=== PATIENT | male | born 1965 | race African-American/Black ===

== ENCOUNTER 2016-07-29 12:27 | Inpatient (IN) | payer OTHER ==
[2016-07-29 14:07] VITALS: BMI 26.3
--- NOTE | 2016-07-29 16:38 | HP ---
CIWA Score - CIWA Score Nausea/Vomitin Muscle Tremors: 4-Moderate,w/Arms Extend Anxiety: 4-Mod. Anxious/Guarded Agitation: 1-Slight > Activity Paroxysmal Sweats: 2 Orientation: 3-Disoriented Date>2 days Tacttile Disturbances: 0-None Auditory Disturbances: 0-None Visual Disturbances: 0-None Headache: 2-Mild CIWA-Ar Total Score: 18 Admission ROS BHS - HPI Chief Complaint: withdrawal sx Allergies/Adverse Reactions: Allergies Allergy/AdvReac Type Severity Reaction Status Date / Time No Known Allergies Allergy Verified 05/07/16 19:33 History of Present Illness: 51 YEARS OLD MALE WITH LONG HISTORY OF ALCOHOL AND NICOTINE DEPENDENCE, HAS ASTHMA AND ANXIETY IS ADMITTED TO DETOX Exam Limitations: No Limitations - Ebola screening Have you traveled outside of the country in the last 21 days: No Have you had contact with anyone from an Ebola affected area: No Have you been sick,other than usual withdrawal symptoms: No Do you have a fever: No - Review of Systems Constitutional: Chills, Changes in sleep, Weight Stable EENT: reports: No Symptoms Reported Respiratory: reports: SOB with Exertion, Productive cough Cardiac: reports: No Symptoms Reported GI: reports: Nausea, Poor Fluid Intake, Vomiting, Indigestion, Abdominal cramping : reports: No Symptoms Reported Musculoskeletal: reports: Back Pain Integumentary: reports: No Symptoms Reported Neuro: reports: Seizure (ALCOHOL RELATED 05/2016), Tremors Endocrine: reports: No Symptoms Reported Hematology: reports: No Symptoms Reported Psychiatric: reports: Judgement Intact, Depressed Other Systems: Reviewed and Negative Patient History - Patient Medical History Hx Anemia: No Hx Asthma: Yes (Pt is on MDI) Hx Chronic Obstructive Pulmonary Disease (COPD): No Hx Cancer: No Hx Cardiac Disorders: No Hx Congestive Heart Failure: No Hx Hypertension: No Hx Hypercholesterolemia: No Hx Pacemaker: No HX Cerebrovascular Accident: No Hx Seizures: Yes (ALCOHOL REALTED 05/2016) Hx Dementia: No Hx Diabetes: No Hx Gastrointestinal Disorders: No Hx Liver Disease: Yes (fatty liver) Hx Genitourinary Disorders: No Hx Sexually Transmitted Disorders: No Hx Renal Disease (ESRD): No Hx Thyroid Disease: No Hx Human Immunodeficiency Virus (HIV): No Hx Hepatitis C: No Hx Depression: Yes Hx Suicide Attempt: No Hx Bipolar Disorder: No Hx Schizophrenia: No - Patient Surgical History Past Surgical History: No Hx Neurologic Surgery: No Hx Cataract Extraction: No Hx Cardiac Surgery: No Hx Lung Surgery: No Hx Breast Surgery: No Hx Breast Biopsy: No Hx Abdominal Surgery: No Hx Appendectomy: No Hx Cholecystectomy: No Hx Genitourinary Surgery: No Hx Orthopedic Surgery: No - PPD History Previous Implant?: Yes Implanted On Prior [facility] Admission?: Yes Date: 11/11/15 Results: 0 mm PPD to be Administered?: No - Smoking Cessation Smoking history: Current every day smoker Have you smoked in the past 12 months: Yes Aproximately how many cigarettes per day: 10 Cigars Per Day: 0 Hx Chewing Tobacco Use: No Initiated information on smoking cessation: Yes 'Breaking Loose' booklet given: 07/29/16 - Substance & Tx. History Hx Alcohol Use: Yes Hx Substance Use: No Substance Use Type: Alcohol Hx Substance Use Treatment: Yes - Substances Abused Alcohol Route: Oral Frequency: Daily Amount used: 1 pint [place] ice tea. Age of first use: 13 Date of Last Use: 07/29/16 Family Disease History - Family Disease History Family Disease History: Other: Father (alcohol), Mother (alcohol) Admission Physical Exam S - Vital Signs Vital Signs: Vital Signs - 24 hr 07/29/16 14:06 Temperature 97.6 F Pulse Rate 97 H Respiratory 16 Rate Blood Pressure 136/82 - Physical General Appearance: Yes: Nourished, Appropriately Dressed, Moderate Distress, Alcohol on Breath, Tremorous, Irritable, Sweating, Anxious HEENTM: Yes: Hearing grossly Normal, Normal ENT Inspection, Normocephalic, Normal Voice Respiratory: Yes: Chest Non-Tender, No Respiratory Distress, No Accessory Muscle Use, Wheezing, Expiration Neck: Yes: Supple, Trachea in good position Breast: Yes: Breasts Symetrical Cardiology: Yes: Regular Rhythm, Tachycardia Abdominal: Yes: Normal Bowel Sounds, Non Tender, Soft Genitourinary: Yes: Within Normal Limits Back: Yes: Normal Inspection Musculoskeletal: Yes: full range of Motion, Gait Steady, Back pain Extremities: Yes: Normal Inspection, Normal Range of Motion, Non-Tender, Tremors Neurological: Yes: Alert, Motor Strength 5/5, Normal Response, Depressed Affect Integumentary: Yes: Warm, Moist Lymphatic: Yes: Within Normal Limits - Diagnostic (1) Alcohol dependence with uncomplicated withdrawal Current Visit: Yes Status: Acute (2) Nicotine dependence Current Visit: Yes Status: Acute Qualifiers: Nicotine product type: cigarettes Substance use status: in withdrawal Qualified Code(s): F17.213 - Nicotine dependence, cigarettes, with withdrawal (3) Asthma Current Visit: Yes Status: Acute Qualifiers: Asthma severity: mild intermittent Asthma complication type: with status asthmaticus Qualified Code(s): J45.22 - Mild intermittent asthma with status asthmaticus (4) Fatty liver, alcoholic Current Visit: Yes Status: Chronic (5) Syphilis Current Visit: Yes Status: Resolved Comment: treated 30 years ago (6) Depression (emotion) Current Visit: Yes Status: Suspected Qualifiers: Depression Type: dysthymia Qualified Code(s): F34.1 - Dysthymic disorder (7) Vomiting Current Visit: Yes Status: Acute Qualifiers: Vomiting type: unspecified Vomiting Intractability: unspecified Nausea presence: with nausea Qualified Code(s): R11.2 - Nausea with vomiting, unspecified Comment: ALCOHOL WITHDRAWAL RELATED Cleared for Admission [facility] - Detox or Rehab [facility] Level of Care: Medically Managed Detox Regimen/Protocol: Librium [facility] Breath Alcohol Content Breath Alcohol Content: 0.196 Urine Drug Screen - Results Drug Screen Negative: Yes
[2016-07-29] MEDS ORDERED: LOPERAMIDE HCL 2 MG CAPSULE PO PRN (16:40)
[2016-07-29] MEDS ORDERED: MAGNESIUM CITRATE 300 ML BOTTLE PO PRN (16:40)
[2016-07-29] MEDS ORDERED: P-EPHED 60MG/TRIPROLIDI 2.5MG TABLET PO PRN (16:40)
[2016-07-29] MEDS ORDERED: MENTHOL/PHENOL 1 EACH UD MM PRN (16:40)
[2016-07-29] MEDS ORDERED: ACETAMINOPHEN 325 MG TABLET (FP) PO PRN (16:40)
[2016-07-29] MEDS ORDERED: chlordiazePOXIDE HCL 25 MG CAPSULE PO PRN (16:40)
[2016-07-29] MEDS ORDERED: diphenhydrAMINE HCL 50 MG CAPSULE PO PRN (16:40)
[2016-07-29] MEDS ORDERED: MAGNESIUM HYDROX 2400MG/30ML ORAL SUSPENSION 30 ML CUP PO PRN (16:40)
[2016-07-29] MEDS ORDERED: MAG HYDROX/AL HYDROX/SIMETH 30 ML UNIT-DOSE CUP PO PRN (16:40)
[2016-07-29] MEDS ORDERED: guaiFENesin/D-METHORPHAN HB 10 ML UNIT-DOSE CUPS PO PRN (16:40)
[2016-07-29] MEDS ORDERED: NICOTINE POLACRILEX 2 MG GUM BC PRN (16:40)
[2016-07-29] MEDS ORDERED: hydrOXYzine PAMOATE 50 MG CAPSULE (FP) PO PRN (16:40)
[2016-07-29] MEDS ORDERED: CYCLOBENZAPRINE HCL 10 MG TABLET (FP) PO PRN (16:42)
[2016-07-29] MEDS ORDERED: ALBUTEROL SO4 2.5/IPRATROPIUM 0.5 INH SOL 3 ML VIAL.NEB. NEB PRN (16:43)
[2016-07-29] MEDS ORDERED: ALBUTEROL SO4 6.7 GM HFA INHALER IH PRN (16:43)
[2016-07-29] MEDS ORDERED: chlordiazePOXIDE HCL 25 MG CAPSULE PO ONE (17:15)
[2016-07-29 19:54] LABS: URINE APPEARANCE CLEAR; URINE BILIRUBIN NEGATIVE (NEGATIVE); URINE BLOOD NEGATIVE (NEGATIVE); URINE COLOR YELLOW; URINE GLUCOSE (UA) NEGATIVE (NEGATIVE); URINE KETONE NEGATIVE (NEGATIVE); URINE LEUK ESTERASE NEGATIVE (NEGATIVE); URINE NITRITE NEGATIVE (NEGATIVE); URINE PROTEIN NEGATIVE (NEGATIVE); URINE UROBILINOGEN NEGATIVE E.U./dl (0.2-1.0)
[2016-07-29] MEDS: THIAMINE HCL 100 MG TABLET (FP) PO SCH (22:25)
[2016-07-29] MEDS: RANITIDINE HCL 150 MG TABLET (FP) PO SCH (22:25)
[2016-07-29] MEDS: chlordiazePOXIDE HCL 25 MG CAPSULE PO SCH (22:26)
[2016-07-30] MEDS: chlordiazePOXIDE HCL 25 MG CAPSULE PO SCH ×4 (05:40→22:07)
[2016-07-30 09:53] LABS: MCH 31.6 pg (25.7-33.7); MCHC 32.8 g/dl (32.0-35.9); MEAN CELL VOLUME 96.3 fl (80-96); MEAN PLT VOLUME 7.6 fl (7.5-11.1); PLATELET COUNT 181 K/MM3 (134-434); RDW 14.4 % (11.9-15.9); WHITE BLOOD COUNT 4.5 K/mm3 (4.0-10.0)
--- NOTE | 2016-07-30 09:54 | CONSULT ---
[facility] Psychiatric Consult - Data Date of interview: 07/30/16 Admission source: [facility] Identifying data: This is 51 years old male with no psychiatric hospitalization history inbtoxicated with Alcohol and Nicotine Substance Abuse History: - Smoking Cessation. Smoking history: Current every day smoker. Have you smoked in the past 12 months: Yes. Aproximately how many cigarettes per day: 10. Cigars Per Day: 0. Hx Chewing Tobacco Use: No. Initiated information on smoking cessation: Yes. 'Breaking Loose' booklet given : 07/29/16. - Substance & Tx. History. Hx Alcohol Use: Yes. Hx Substance Use : No. Substance Use Type: Alcohol. Hx Substance Use Treatment: Yes. - Substances Abused. Alcohol. Route: Oral. Frequency: Daily. Amount used: 1 pint [employer] ice tea. Age of first use: 13. Date of Last Use: 07/29/16 Medical History: Asthma, Fatty Liver, Syphilis history Psychiatric History: Patient reports history of Depression, reports no medications taking prior to admission Physical/Sexual Abuse/Trauma History: Denies Additional Comment: Observation. Detox Unit Care Protocol Mental Status Exam - Mental Status Exam Alert and Oriented to: Person Cognitive Function: Fair Patient Appearance: Unkempt Mood: Sad Affect: Flat Patient Behavior: Sedated Speech Pattern: Delayed Voice Loudness: Mildly Soft/Quiet Thought Process: Circumstantial Thought Disorder: Being Controlled Hallucinations: Denies Suicidal Ideation: Denies Homicidal Ideation: Denies Insight/Judgement: Fair Sleep: Difficulty falling asleep Appetite: Weight gain Muscle strength/Tone: Mild Hypotonicity Gait/Station: Shuffling Additional Comments: Observation. Detox Unit Care Protocol Psychiatric Findings - Problem List ([place] 1, 2,3) (1) Alcohol dependence with uncomplicated withdrawal Current Visit: Yes Status: Acute (2) Nicotine dependence Current Visit: Yes Status: Acute Qualifiers: Nicotine product type: cigarettes Substance use status: in withdrawal Qualified Code(s): F17.213 - Nicotine dependence, cigarettes, with withdrawal (3) Fatty liver, alcoholic Current Visit: Yes Status: Chronic (4) Drug-induced mood disorder Current Visit: No Status: Acute - Initial Treatment Plan Initial Treatment Plan: Observation. Detox Unit Care Protocol
[2016-07-30] MEDS: LIDOCAINE 5% TOPICAL PATCH TP SCH (10:09)
[2016-07-30] MEDS: PRENATAL VITAMINS W/ FOLIC ACID TABLET (FP) PO SCH (10:09)
[2016-07-30] MEDS: RANITIDINE HCL 150 MG TABLET (FP) PO SCH ×2 (10:09→22:08)
[2016-07-30] MEDS: NICOTINE 14 MG/24 HOURS TOPICAL PATCH TD SCH (10:09)
--- NOTE | 2016-07-30 10:25 | PN ---
[facility] CIWA - CIWA Score Nausea/Vomitin-No Nausea/No Vomiting Muscle Tremors: 4-Moderate,w/Arms Extend Anxiety: 4-Mod. Anxious/Guarded Agitation: 4-Moderately Restless Paroxysmal Sweats: 1-Minimal Palms Moist Orientation: 0-Oriented Tacttile Disturbances: 3-Moderate Itch/Numb/Burn Auditory Disturbances: 0-None Visual Disturbances: 0-None Headache: 0-None Present CIWA-Ar Total Score: 16 BHS Progress Note (SOAP) Subjective: ANXIETY,TREMORS,SWEATS. Objective: 07/30/16 10:24 Vital Signs Temperature 96.6 F L 07/30/16 09:54 Pulse Rate 103 H 07/30/16 09:54 Respiratory Rate 20 07/30/16 09:54 Blood Pressure 137/94 07/30/16 09:54 O2 Sat by Pulse Oximetry (%) Laboratory Last Values WBC 4.5 K/mm3 (4.0-10.0) D 07/30/16 07:20 RBC 4.34 M/mm3 (4.00-5.60) 07/30/16 07:20 Hgb 13.7 GM/dL (11.7-16.9) 07/30/16 07:20 Hct 41.8 % (35.4-49) 07/30/16 07:20 MCV 96.3 fl (80-96) H 07/30/16 07:20 MCHC 32.8 g/dl (32.0-35.9) 07/30/16 07:20 RDW 14.4 % (11.9-15.9) 07/30/16 07:20 Plt Count 181 K/MM3 (134-434) 07/30/16 07:20 MPV 7.6 fl (7.5-11.1) 07/30/16 07:20 Urine Color Yellow 07/29/16 19:00 Urine Appearance Clear 07/29/16 19:00 Urine pH 6.0 (5.0-8.0) D 07/29/16 19:00 Ur Specific [place] 1.023 (1.001-1.035) 07/29/16 19:00 Urine Protein Negative (NEGATIVE) 07/29/16 19:00 Urine Glucose (UA) Negative (NEGATIVE) 07/29/16 19:00 Urine Ketones Negative (NEGATIVE) 07/29/16 19:00 Urine Blood Negative (NEGATIVE) 07/29/16 19:00 Urine Nitrite Negative (NEGATIVE) 07/29/16 19:00 Urine Bilirubin Negative (NEGATIVE) 07/29/16 19:00 Urine Urobilinogen Negative E.U./dl (0.2-1.0) 07/29/16 19:00 Ur Leukocyte Esterase Negative (NEGATIVE) 07/29/16 19:00 Assessment: 07/30/16 10:25 WITHDRAWAL SX Plan: CONTINUE DETOX
[2016-07-30 10:29] LABS: ALK PHOS 87 U/L (45-117); ANION GAP 10 (8-16); BILIRUBIN,TOTAL 0.4 mg/dL (0.2-1.0); CALCIUM 8.1 mg/dL (8.5-10.1); CO2 27 mmol/L (21-32); CREATININE 1.1 mg/dL (0.7-1.3); GLUCOSE,RANDOM 183 mg/dL (74-106); SGOT/AST 362 U/L (15-37); SGPT/ALT 148 U/L (12-78); TOT PROT 6.9 g/dl (6.4-8.2)
--- NOTE | 2016-07-30 15:08 | EKG ---
Test Reason : Blood Pressure : / mmHG Vent. Rate : 089 BPM Atrial Rate : 089 BPM P-R Int : 134 ms QRS Dur : 082 ms QT Int : 350 ms P-R-T Axes : 059 069 047 degrees QTc Int : 425 ms NORMAL SINUS RHYTHM NORMAL ECG NO PREVIOUS ECGS AVAILABLE Confirmed by RADHA CHRISTENSEN MD ([id number]) on 07/30/2016 3:08:37 PM Referred By: Confirmed By:RADHA CHRISTENSEN MD
[2016-07-30] MEDS ORDERED: cloNIDine HCL 0.1 MG TABLET PO ONE (21:10)
[2016-07-30] MEDS: THIAMINE HCL 100 MG TABLET (FP) PO SCH (22:07)
[2016-07-31] MEDS: chlordiazePOXIDE HCL 25 MG CAPSULE PO SCH ×3 (05:32→17:19)
[2016-07-31] MEDS: PRENATAL VITAMINS W/ FOLIC ACID TABLET (FP) PO SCH (10:08)
[2016-07-31] MEDS: NICOTINE 14 MG/24 HOURS TOPICAL PATCH TD SCH (10:08)
[2016-07-31] MEDS: LIDOCAINE 5% TOPICAL PATCH TP SCH (10:10)
[2016-07-31] MEDS: RANITIDINE HCL 150 MG TABLET (FP) PO SCH ×2 (10:12→22:10)
--- NOTE | 2016-07-31 10:29 | PN ---
[facility] CIWA - CIWA Score Nausea/Vomitin-No Nausea/No Vomiting Muscle Tremors: 4-Moderate,w/Arms Extend Anxiety: 5 Agitation: 4-Moderately Restless Paroxysmal Sweats: 1-Minimal Palms Moist Orientation: 0-Oriented Tacttile Disturbances: 3-Moderate Itch/Numb/Burn Auditory Disturbances: 0-None Visual Disturbances: 0-None Headache: 0-None Present CIWA-Ar Total Score: 17 BHS Progress Note (SOAP) Subjective: ANXIETY,SWEATS,IRRITABILITY,FATIGUE. Objective: 07/31/16 10:28 Vital Signs Temperature 97.2 F L 07/31/16 06:37 Pulse Rate 53 L 07/31/16 06:37 Respiratory Rate 18 07/31/16 06:37 Blood Pressure 145/87 07/31/16 06:37 O2 Sat by Pulse Oximetry (%) Laboratory Last Values WBC 4.5 K/mm3 (4.0-10.0) D 07/30/16 07:20 RBC 4.34 M/mm3 (4.00-5.60) 07/30/16 07:20 Hgb 13.7 GM/dL (11.7-16.9) 07/30/16 07:20 Hct 41.8 % (35.4-49) 07/30/16 07:20 MCV 96.3 fl (80-96) H 07/30/16 07:20 MCHC 32.8 g/dl (32.0-35.9) 07/30/16 07:20 RDW 14.4 % (11.9-15.9) 07/30/16 07:20 Plt Count 181 K/MM3 (134-434) 07/30/16 07:20 MPV 7.6 fl (7.5-11.1) 07/30/16 07:20 Sodium 141 mmol/L (136-145) 07/30/16 07:20 Potassium 3.9 mmol/L (3.5-5.1) 07/30/16 07:20 Chloride 104 mmol/L (98-107) 07/30/16 07:20 Carbon Dioxide 27 mmol/L (21-32) 07/30/16 07:20 Anion Gap 10 (8-16) 07/30/16 07:20 BUN 12 mg/dL (7-18) 07/30/16 07:20 Creatinine 1.1 mg/dL (0.7-1.3) 07/30/16 07:20 Creat Clearance w eGFR > 60 (>60) 07/30/16 07:20 Random Glucose 183 mg/dL (74-106) H D 07/30/16 07:20 Calcium 8.1 mg/dL (8.5-10.1) L 07/30/16 07:20 Total Bilirubin 0.4 mg/dL (0.2-1.0) D 07/30/16 07:20 AST 362 U/L (15-37) H D 07/30/16 07:20 ALT 148 U/L (12-78) H D 07/30/16 07:20 Alkaline Phosphatase 87 U/L (45-117) 07/30/16 07:20 Total Protein 6.9 g/dl (6.4-8.2) 07/30/16 07:20 Albumin 3.0 g/dl (3.4-5.0) L 07/30/16 07:20 Urine Color Yellow 07/29/16 19:00 Urine Appearance Clear 07/29/16 19:00 Urine pH 6.0 (5.0-8.0) D 07/29/16 19:00 Ur Specific [place] 1.023 (1.001-1.035) 07/29/16 19:00 Urine Protein Negative (NEGATIVE) 07/29/16 19:00 Urine Glucose (UA) Negative (NEGATIVE) 07/29/16 19:00 Urine Ketones Negative (NEGATIVE) 07/29/16 19:00 Urine Blood Negative (NEGATIVE) 07/29/16 19:00 Urine Nitrite Negative (NEGATIVE) 07/29/16 19:00 Urine Bilirubin Negative (NEGATIVE) 07/29/16 19:00 Urine Urobilinogen Negative E.U./dl (0.2-1.0) 07/29/16 19:00 Ur Leukocyte Esterase Negative (NEGATIVE) 07/29/16 19:00 RPR Titer Nonreactive (NONREACTIVE) 07/30/16 07:20 Hepatitis C Antibody 0.1 s/co ratio (0.0-0.9) 07/30/16 07:20 Assessment: 07/31/16 10:29 WITHDRAWAL SX Plan: CONTINUE DETOX
[2016-07-31] MEDS: THIAMINE HCL 100 MG TABLET (FP) PO SCH (22:10)
[2016-07-31] MEDS: chlordiazePOXIDE 5 MG CAPSULE PO SCH (22:11)
[2016-08-01] MEDS: chlordiazePOXIDE 5 MG CAPSULE PO SCH ×3 (05:33→17:17)
[2016-08-01] MEDS: PRENATAL VITAMINS W/ FOLIC ACID TABLET (FP) PO SCH (10:04)
[2016-08-01] MEDS: LIDOCAINE 5% TOPICAL PATCH TP SCH (10:04)
[2016-08-01] MEDS: RANITIDINE HCL 150 MG TABLET (FP) PO SCH ×2 (10:04→22:07)
[2016-08-01] MEDS: NICOTINE 14 MG/24 HOURS TOPICAL PATCH TD SCH (10:04)
--- NOTE | 2016-08-01 12:26 | PN ---
BHS Progress Note (SOAP) Subjective: Restlessness, interrupted sleep, anxiety Objective: Vital Signs Temperature 97.2 F L 08/01/16 09:58 Pulse Rate 93 H 08/01/16 09:58 Respiratory Rate 20 08/01/16 09:58 Blood Pressure 135/95 08/01/16 09:58 O2 Sat by Pulse Oximetry (%) Laboratory Last Values WBC 4.5 K/mm3 (4.0-10.0) D 07/30/16 07:20 RBC 4.34 M/mm3 (4.00-5.60) 07/30/16 07:20 Hgb 13.7 GM/dL (11.7-16.9) 07/30/16 07:20 Hct 41.8 % (35.4-49) 07/30/16 07:20 MCV 96.3 fl (80-96) H 07/30/16 07:20 MCHC 32.8 g/dl (32.0-35.9) 07/30/16 07:20 RDW 14.4 % (11.9-15.9) 07/30/16 07:20 Plt Count 181 K/MM3 (134-434) 07/30/16 07:20 MPV 7.6 fl (7.5-11.1) 07/30/16 07:20 Sodium 141 mmol/L (136-145) 07/30/16 07:20 Potassium 3.9 mmol/L (3.5-5.1) 07/30/16 07:20 Chloride 104 mmol/L (98-107) 07/30/16 07:20 Carbon Dioxide 27 mmol/L (21-32) 07/30/16 07:20 Anion Gap 10 (8-16) 07/30/16 07:20 BUN 12 mg/dL (7-18) 07/30/16 07:20 Creatinine 1.1 mg/dL (0.7-1.3) 07/30/16 07:20 Creat Clearance w eGFR > 60 (>60) 07/30/16 07:20 Random Glucose 183 mg/dL (74-106) H D 07/30/16 07:20 Calcium 8.1 mg/dL (8.5-10.1) L 07/30/16 07:20 Total Bilirubin 0.4 mg/dL (0.2-1.0) D 07/30/16 07:20 AST 362 U/L (15-37) H D 07/30/16 07:20 ALT 148 U/L (12-78) H D 07/30/16 07:20 Alkaline Phosphatase 87 U/L (45-117) 07/30/16 07:20 Total Protein 6.9 g/dl (6.4-8.2) 07/30/16 07:20 Albumin 3.0 g/dl (3.4-5.0) L 07/30/16 07:20 Urine Color Yellow 07/29/16 19:00 Urine Appearance Clear 07/29/16 19:00 Urine pH 6.0 (5.0-8.0) D 07/29/16 19:00 Ur Specific [place] 1.023 (1.001-1.035) 07/29/16 19:00 Urine Protein Negative (NEGATIVE) 07/29/16 19:00 Urine Glucose (UA) Negative (NEGATIVE) 07/29/16 19:00 Urine Ketones Negative (NEGATIVE) 07/29/16 19:00 Urine Blood Negative (NEGATIVE) 07/29/16 19:00 Urine Nitrite Negative (NEGATIVE) 07/29/16 19:00 Urine Bilirubin Negative (NEGATIVE) 07/29/16 19:00 Urine Urobilinogen Negative E.U./dl (0.2-1.0) 07/29/16 19:00 Ur Leukocyte Esterase Negative (NEGATIVE) 07/29/16 19:00 RPR Titer Nonreactive (NONREACTIVE) 07/30/16 07:20 Hepatitis C Antibody 0.1 s/co ratio (0.0-0.9) 07/30/16 07:20 labs noted Assessment: withdrawal symptoms Plan: Continue Detox
[2016-08-01] MEDS: THIAMINE HCL 100 MG TABLET (FP) PO SCH (22:07)
[2016-08-01] MEDS: chlordiazePOXIDE HCL 10 MG CAPSULE PO SCH (22:07)
[2016-08-02] MEDS: chlordiazePOXIDE HCL 10 MG CAPSULE PO SCH ×2 (05:57→11:08)
[2016-08-02 07:07] VITALS: BP 127/77; PULSE 95; TEMP 96.3
[2016-08-02] MEDS: RANITIDINE HCL 150 MG TABLET (FP) PO SCH (11:08)
[2016-08-02] MEDS: PRENATAL VITAMINS W/ FOLIC ACID TABLET (FP) PO SCH (11:08)
[2016-08-02] MEDS: NICOTINE 14 MG/24 HOURS TOPICAL PATCH TD SCH (11:08)
[2016-08-02] MEDS: LIDOCAINE 5% TOPICAL PATCH TP SCH (11:08)
--- NOTE | 2016-08-02 12:58 | DS ---
[facility] Detox Discharge Summary Admission Date: 07/29/16 Discharge Date: 08/02/16 - History Present History: Alcohol Dependence Pertinent Past History: Alcohol related seizure disorder Fatty liver Asthma - Physical Exam Results Vital Signs: Vital Signs Temperature 96.3 F L 08/02/16 07:06 Pulse Rate 95 H 08/02/16 07:06 Respiratory Rate 18 08/02/16 07:06 Blood Pressure 127/77 08/02/16 07:06 O2 Sat by Pulse Oximetry (%) Pertinent Admission Physical Exam Findings: Withdrawal symptoms Laboratory Tests 07/29/16 07/30/16 07/30/16 19:00 07:20 07:20 WBC 4.5 D RBC 4.34 Hgb 13.7 Hct 41.8 MCV 96.3 H MCHC 32.8 RDW 14.4 Plt Count 181 MPV 7.6 Sodium Potassium Chloride Carbon Dioxide Anion Gap BUN Creatinine Creat Clearance w eGFR Random Glucose Calcium Total Bilirubin AST ALT Alkaline Phosphatase Total Protein Albumin Urine Color Yellow Urine Appearance Clear Urine pH 6.0 D Ur Specific [place] 1.023 Urine Protein Negative Urine Glucose (UA) Negative Urine Ketones Negative Urine Blood Negative Urine Nitrite Negative Urine Bilirubin Negative Urine Urobilinogen Negative Ur Leukocyte Esterase Negative RPR Titer Hepatitis C Antibody 0.1 07/30/16 07/30/16 07:20 07:20 WBC RBC Hgb Hct MCV MCHC RDW Plt Count MPV Sodium 141 Potassium 3.9 Chloride 104 Carbon Dioxide 27 Anion Gap 10 BUN 12 Creatinine 1.1 Creat Clearance w eGFR > 60 Random Glucose 183 H D Calcium 8.1 L Total Bilirubin 0.4 D AST 362 H D ALT 148 H D Alkaline Phosphatase 87 Total Protein 6.9 Albumin 3.0 L Urine Color Urine Appearance Urine pH Ur Specific [place] Urine Protein Urine Glucose (UA) Urine Ketones Urine Blood Urine Nitrite Urine Bilirubin Urine Urobilinogen Ur Leukocyte Esterase RPR Titer Nonreactive Hepatitis C Antibody Labs noted - Treatment Hospital Course: Detox Protocol Followed, Detoxed Safely, Responded well, Discharged Condition Good - Medication Discharge Medications: Ambulatory Orders Albuterol Sulfate Inhaler - [Ventolin Hfa Inhaler -] 2 inh PO Q4H PRN 11/09/15 - Diagnosis (1) Alcohol dependence with uncomplicated withdrawal Status: Acute (2) Asthma Status: Chronic Qualifiers: Asthma severity: mild intermittent Asthma complication type: with status asthmaticus Qualified Code(s): J45.22 - Mild intermittent asthma with status asthmaticus (3) Nicotine dependence Status: Chronic Qualifiers: Nicotine product type: cigarettes Substance use status: in withdrawal Qualified Code(s): F17.213 - Nicotine dependence, cigarettes, with withdrawal (4) Fatty liver, alcoholic Status: Chronic (5) Depression (emotion) Status: Chronic Qualifiers: Depression Type: dysthymia Qualified Code(s): F34.1 - Dysthymic disorder - AMA Did Patient Leave Against Medical Advice: No
== END 2016-08-02 09:00 | disposition home or self-care (01) | DRG 775 ==
LOC: YASAS 12:27 → Y3N 16:11
PROVIDERS: ADMIT Internal Medicine; ATTEND Internal Medicine
PROC: HZ2ZZZZ Detoxification Services for Substance Abuse Treatment (ICD-10-PCS; principal; 2016-08-02)
DX: F10.230 Alcohol dependence with withdrawal, uncomplicated (principal); F17.213 Nicotine dependence, cigarettes, with withdrawal; F34.1 Dysthymic disorder; F19.24 Other psychoactive substance dependence with psychoactive substance-induced mood disorder; J45.22 Mild intermittent asthma with status asthmaticus; K70.0 Alcoholic fatty liver; R11.2 Nausea with vomiting, unspecified; Z86.19 Personal history of other infectious and parasitic diseases
CPT/HCPCS: 36415; 80053; 81003; 85027; 86593; 93005; 93010

== ENCOUNTER 2020-04-29 13:22 | Inpatient (IN) | payer OTHER ==
[2020-04-29 15:07] VITALS: BMI 28.6
[2020-04-29] MEDS ORDERED: chlordiazePOXIDE HCL 25 MG CAPSULE PO PRN (15:36)
[2020-04-29] MEDS ORDERED: MENTHOL/PHENOL 1 EACH UD MM PRN (15:36)
[2020-04-29] MEDS ORDERED: ACETAMINOPHEN 325 MG TABLET (FP) PO PRN ×2 (15:36)
[2020-04-29] MEDS ORDERED: ONDANSETRON *ODT* 4 MG TABLET SL PRN (15:36)
[2020-04-29] MEDS ORDERED: METHOCARBAMOL 500 MG TABLET PO PRN (15:36)
[2020-04-29] MEDS ORDERED: NICOTINE POLACRILEX 2 MG GUM BUC PRN (15:36)
[2020-04-29] MEDS ORDERED: MAGNESIUM CITRATE 300 ML BOTTLE PO PRN (15:36)
[2020-04-29] MEDS ORDERED: MAGNESIUM HYDROX 2400MG/30ML ORAL SUSPENSION 30 ML CUP PO PRN (15:36)
[2020-04-29] MEDS ORDERED: IBUPROFEN 400 MG TABLET (FP) PO PRN (15:36)
[2020-04-29] MEDS ORDERED: BISMUTH SUBSALICYLATE 262 MG/15 ML BTL PO PRN (15:36)
[2020-04-29] MEDS ORDERED: ALBUTEROL SO4 HFA INHALER IH PRN (15:39)
[2020-04-29] MEDS: hydrOXYzine PAMOATE 25 MG CAPSULE (FP) PO SCH ×3 (16:50→22:06)
[2020-04-29] MEDS: PRENATAL VITAMINS W/ FOLIC ACID TABLET (FP) PO SCH (16:50)
[2020-04-29] MEDS: chlordiazePOXIDE HCL 25 MG CAPSULE PO SCH ×2 (16:50→22:06)
[2020-04-29] MEDS: NICOTINE 14 MG/24 HOURS TOPICAL PATCH TD SCH (16:55)
[2020-04-29] MEDS: THIAMINE HCL 100 MG TABLET (FP) PO SCH (22:06)
[2020-04-29] MEDS: MELATONIN 5 MG TABLETS PO SCH (22:06)
[2020-04-30] MEDS: hydrOXYzine PAMOATE 25 MG CAPSULE (FP) PO SCH ×2 (05:39→10:06)
[2020-04-30] MEDS: chlordiazePOXIDE HCL 25 MG CAPSULE PO SCH ×4 (05:39→22:15)
[2020-04-30] MEDS: PRENATAL VITAMINS W/ FOLIC ACID TABLET (FP) PO SCH (10:06)
[2020-04-30] MEDS: NICOTINE 14 MG/24 HOURS TOPICAL PATCH TD SCH (10:06)
[2020-04-30] MEDS: amLODIPine BESYLATE 10 MG TABLET (FP) PO SCH (10:06)
[2020-04-30 10:19] LABS: POTASSIUM 3.5 mmol/L (3.5-5.1)
[2020-04-30 10:20] LABS: HEMATOCRIT 40.6 % (35.4-49); HEMOGLOBIN 12.9 GM/dL (11.7-16.9); MCH 29.5 pg (25.7-33.7); MCHC 31.8 g/dl (32.0-35.9); MEAN CELL VOLUME 92.8 fl (80-96); MEAN PLT VOLUME 8.9 fl (7.5-11.1); PLATELET COUNT 95 K/MM3 (134-434); RBC 4.37 M/mm3 (4.00-5.60); RDW 16.3 % (11.9-15.9); WHITE BLOOD COUNT 5.5 K/mm3 (4.0-10.0)
[2020-04-30 10:23] LABS: ALBUMIN 4.1 g/dl (3.4-5.0); BLOOD UREA NITROGEN 9.4 mg/dL (7-18); CALCIUM 8.9 mg/dL (8.5-10.1)
[2020-04-30 10:28] LABS: BILIRUBIN,TOTAL 0.8 mg/dL (0.2-1)
[2020-04-30] MEDS: VITAMINS A AND D TOPICAL OINTMENT 60 GM TUBE TP SCH (17:51)
[2020-04-30] MEDS: MELATONIN 5 MG TABLETS PO SCH (22:15)
[2020-04-30] MEDS: THIAMINE HCL 100 MG TABLET (FP) PO SCH (22:15)
[2020-05-01] MEDS: VITAMINS A AND D TOPICAL OINTMENT 60 GM TUBE TP SCH ×5 (01:09→23:41)
[2020-05-01] MEDS: MAG HYDROX/AL HYDROX/SIMETH 30 ML UNIT-DOSE CUP PO PRN ×2 (01:21→23:47)
[2020-05-01] MEDS: chlordiazePOXIDE HCL 25 MG CAPSULE PO SCH ×4 (05:36→22:08)
[2020-05-01] MEDS: amLODIPine BESYLATE 10 MG TABLET (FP) PO SCH (10:08)
[2020-05-01] MEDS: PRENATAL VITAMINS W/ FOLIC ACID TABLET (FP) PO SCH (10:08)
[2020-05-01] MEDS: NICOTINE 14 MG/24 HOURS TOPICAL PATCH TD SCH (10:09)
[2020-05-01] MEDS: hydrOXYzine PAMOATE 25 MG CAPSULE (FP) PO PRN (17:25)
[2020-05-01] MEDS: MELATONIN 5 MG TABLETS PO SCH (22:08)
[2020-05-01] MEDS: THIAMINE HCL 100 MG TABLET (FP) PO SCH (22:08)
[2020-05-02] MEDS ORDERED: chlordiazePOXIDE HCL 10 MG CAPSULE PO PRN
[2020-05-02] MEDS: chlordiazePOXIDE HCL 10 MG CAPSULE PO SCH ×4 (06:13→22:10)
[2020-05-02] MEDS: VITAMINS A AND D TOPICAL OINTMENT 60 GM TUBE TP SCH ×3 (06:14→17:31)
[2020-05-02] MEDS: PRENATAL VITAMINS W/ FOLIC ACID TABLET (FP) PO SCH (10:26)
[2020-05-02] MEDS: NICOTINE 14 MG/24 HOURS TOPICAL PATCH TD SCH (10:27)
[2020-05-02] MEDS: amLODIPine BESYLATE 10 MG TABLET (FP) PO SCH (10:27)
[2020-05-02] MEDS: MELATONIN 5 MG TABLETS PO SCH (22:10)
[2020-05-02] MEDS: THIAMINE HCL 100 MG TABLET (FP) PO SCH (22:10)
[2020-05-03] MEDS: VITAMINS A AND D TOPICAL OINTMENT 60 GM TUBE TP SCH ×4 (00:55→22:03)
[2020-05-03] MEDS: chlordiazePOXIDE HCL 10 MG CAPSULE PO SCH ×2 (06:13→17:58)
[2020-05-03] MEDS: NICOTINE 14 MG/24 HOURS TOPICAL PATCH TD SCH (10:28)
[2020-05-03] MEDS: PRENATAL VITAMINS W/ FOLIC ACID TABLET (FP) PO SCH (10:29)
[2020-05-03] MEDS: amLODIPine BESYLATE 10 MG TABLET (FP) PO SCH (10:29)
[2020-05-03] MEDS: MELATONIN 5 MG TABLETS PO SCH (22:01)
[2020-05-03] MEDS: THIAMINE HCL 100 MG TABLET (FP) PO SCH (22:01)
[2020-05-03] MEDS: hydrOXYzine PAMOATE 25 MG CAPSULE (FP) PO PRN (22:01)
[2020-05-03] MEDS: MAG HYDROX/AL HYDROX/SIMETH 30 ML UNIT-DOSE CUP PO PRN (23:12)
[2020-05-04] MEDS: VITAMINS A AND D TOPICAL OINTMENT 60 GM TUBE TP SCH ×2 (00:36→05:46)
[2020-05-04] MEDS ORDERED: chlordiazePOXIDE HCL 10 MG CAPSULE PO ONE (05:00)
[2020-05-04 09:14] VITALS: BP 134/81; PULSE 96; TEMP 98
[2020-05-04] MEDS: amLODIPine BESYLATE 10 MG TABLET (FP) PO SCH (10:19)
[2020-05-04] MEDS: NICOTINE 14 MG/24 HOURS TOPICAL PATCH TD SCH (10:19)
[2020-05-04] MEDS: PRENATAL VITAMINS W/ FOLIC ACID TABLET (FP) PO SCH (10:19)
== END 2020-05-04 10:50 | disposition home or self-care (01) | DRG 775 ==
LOC: YASAS 13:22 → Y6N 15:28
PROVIDERS: ADMIT Allergy & Immunology; ATTEND Allergy & Immunology
PROC: HZ2ZZZZ Detoxification Services for Substance Abuse Treatment (ICD-10-PCS; principal; 2020-04-29)
DX: F10.230 Alcohol dependence with withdrawal, uncomplicated (principal); F10.24 Alcohol dependence with alcohol-induced mood disorder; F10.282 Alcohol dependence with alcohol-induced sleep disorder; F34.1 Dysthymic disorder; I10 Essential (primary) hypertension; J45.909 Unspecified asthma, uncomplicated; K21.9 Gastro-esophageal reflux disease without esophagitis; K70.0 Alcoholic fatty liver; Z86.69 Personal history of other diseases of the nervous system and sense organs; Z86.19 Personal history of other infectious and parasitic diseases
CPT/HCPCS: 36415; 80053; 82947; 85027; 86593; 86780; C9803; U0003

== ENCOUNTER 2020-06-21 08:44 | Inpatient (IN) | payer OTHER ==
[2020-06-21 09:49] VITALS: BMI 28.3
[2020-06-21] MEDS ORDERED: IBUPROFEN 400 MG TABLET (FP) PO PRN (11:39)
[2020-06-21] MEDS ORDERED: chlordiazePOXIDE HCL 25 MG CAPSULE PO PRN (11:39)
[2020-06-21] MEDS ORDERED: NICOTINE POLACRILEX 2 MG GUM BUC PRN (11:39)
[2020-06-21] MEDS ORDERED: METHOCARBAMOL 500 MG TABLET PO PRN (11:39)
[2020-06-21] MEDS ORDERED: MENTHOL/PHENOL 1 EACH UD MM PRN (11:39)
[2020-06-21] MEDS ORDERED: MAGNESIUM HYDROX 2400MG/30ML ORAL SUSPENSION 30 ML CUP PO PRN (11:39)
[2020-06-21] MEDS ORDERED: ACETAMINOPHEN 325 MG TABLET (FP) PO PRN ×2 (11:39)
[2020-06-21] MEDS ORDERED: BISMUTH SUBSALICYLATE 262 MG/15 ML BTL PO PRN (11:39)
[2020-06-21] MEDS ORDERED: MAG HYDROX/AL HYDROX/SIMETH 30 ML UNIT-DOSE CUP PO PRN (11:39)
[2020-06-21] MEDS ORDERED: ONDANSETRON *ODT* 4 MG TABLET SL PRN (11:39)
[2020-06-21] MEDS ORDERED: MAGNESIUM CITRATE 300 ML BOTTLE PO PRN (11:39)
[2020-06-21] MEDS ORDERED: ALBUTEROL SO4 HFA INHALER IH PRN (11:41)
[2020-06-21] MEDS: chlordiazePOXIDE HCL 25 MG CAPSULE PO SCH ×3 (12:53→22:06)
[2020-06-21] MEDS: PRENATAL VITAMINS W/ FOLIC ACID TABLET (FP) PO SCH (12:53)
[2020-06-21] MEDS: NICOTINE 7 MG/24 HOURS TOPICAL PATCH TD SCH (12:54)
[2020-06-21] MEDS ORDERED: hydrOXYzine PAMOATE 25 MG CAPSULE (FP) PO SCH (14:00)
[2020-06-21] MEDS ORDERED: hydrOXYzine PAMOATE 25 MG CAPSULE (FP) PO PRN (14:19)
[2020-06-21 16:30] LABS: POTASSIUM 4.3 mmol/L (3.5-5.1)
[2020-06-21 16:32] LABS: HEMATOCRIT 42.3 % (35.4-49); HEMOGLOBIN 13.4 GM/dL (11.7-16.9); MCH 28.8 pg (25.7-33.7); MCHC 31.6 g/dl (32.0-35.9); MEAN CELL VOLUME 91.2 fl (80-96); MEAN PLT VOLUME 9.1 fl (7.5-11.1); RBC 4.64 M/mm3 (4.00-5.60)
[2020-06-21 16:34] LABS: ALBUMIN 4.1 g/dl (3.4-5.0); BLOOD UREA NITROGEN 7.4 mg/dL (7-18)
[2020-06-21 16:36] LABS: CREATININE 0.9 mg/dL (0.55-1.3)
[2020-06-21 16:37] LABS: BILIRUBIN,TOTAL 1.2 mg/dL (0.2-1); TOT PROT 8.2 g/dl (6.4-8.2)
[2020-06-21] MEDS: MELATONIN 5 MG TABLETS PO SCH (22:05)
[2020-06-21] MEDS: THIAMINE HCL 100 MG TABLET (FP) PO SCH (22:05)
[2020-06-22] MEDS: chlordiazePOXIDE HCL 25 MG CAPSULE PO SCH ×2 (06:13→10:22)
[2020-06-22] MEDS: amLODIPine BESYLATE 10 MG TABLET (FP) PO SCH (10:22)
[2020-06-22] MEDS: PRENATAL VITAMINS W/ FOLIC ACID TABLET (FP) PO SCH (10:22)
[2020-06-22] MEDS: NICOTINE 7 MG/24 HOURS TOPICAL PATCH TD SCH (10:23)
[2020-06-22] MEDS ORDERED: LORazepam 1 MG TABLET PO PRN (12:10)
[2020-06-22] MEDS ORDERED: LORazepam 2 MG TABLET PO PRN (17:00)
[2020-06-22] MEDS: MELATONIN 5 MG TABLETS PO SCH (22:23)
[2020-06-22] MEDS: THIAMINE HCL 100 MG TABLET (FP) PO SCH (22:24)
[2020-06-23] MEDS ORDERED: chlordiazePOXIDE HCL 25 MG CAPSULE PO SCH (05:00)
[2020-06-23] MEDS: LORazepam 1 MG TABLET PO SCH ×4 (06:05→22:16)
[2020-06-23] MEDS: PRENATAL VITAMINS W/ FOLIC ACID TABLET (FP) PO SCH (10:23)
[2020-06-23] MEDS: amLODIPine BESYLATE 10 MG TABLET (FP) PO SCH (10:23)
[2020-06-23] MEDS: NICOTINE 7 MG/24 HOURS TOPICAL PATCH TD SCH (10:23)
[2020-06-23] MEDS ORDERED: PENICILLIN G BENZATHINE 2,400,000 UNIT/4 ML PFS IM ONE (18:00)
[2020-06-23] MEDS: MELATONIN 5 MG TABLETS PO SCH (22:16)
[2020-06-23] MEDS: THIAMINE HCL 100 MG TABLET (FP) PO SCH (22:16)
[2020-06-24] MEDS ORDERED: chlordiazePOXIDE HCL 10 MG CAPSULE PO PRN
[2020-06-24] MEDS ORDERED: chlordiazePOXIDE HCL 10 MG CAPSULE PO SCH (05:00)
[2020-06-24] MEDS: LORazepam 0.5 MG TABLET PO SCH ×4 (05:27→22:34)
[2020-06-24] MEDS: amLODIPine BESYLATE 10 MG TABLET (FP) PO SCH (10:55)
[2020-06-24] MEDS: PRENATAL VITAMINS W/ FOLIC ACID TABLET (FP) PO SCH (10:55)
[2020-06-24] MEDS: NICOTINE 7 MG/24 HOURS TOPICAL PATCH TD SCH (10:56)
[2020-06-24 12:10] LABS: BILIRUBIN,TOTAL 0.4 mg/dL (0.2-1)
[2020-06-24 12:20] LABS: BASO % 0.4 % (0-2.0); EOS % 1.5 % (0-4.5); HEMATOCRIT 38.7 % (35.4-49); HEMOGLOBIN 12.7 GM/dL (11.7-16.9); LYMPH % 28.9 % (8-40); MCH 29.2 pg (25.7-33.7); MCHC 32.8 g/dl (32.0-35.9); MEAN PLT VOLUME 9.3 fl (7.5-11.1); MONO % 9.3 % (3.8-10.2); NEUT % 59.9 % (42.8-82.8); PLATELET COUNT 77 K/MM3 (134-434); RBC 4.35 M/mm3 (4.00-5.60); RDW 16.5 % (11.9-15.9); WHITE BLOOD COUNT 5.7 K/mm3 (4.0-10.0)
[2020-06-24] MEDS: THIAMINE HCL 100 MG TABLET (FP) PO SCH (22:33)
[2020-06-24] MEDS: MELATONIN 5 MG TABLETS PO SCH (22:33)
[2020-06-25] MEDS ORDERED: LORazepam 0.5 MG TABLET PO PRN
[2020-06-25] MEDS ORDERED: chlordiazePOXIDE HCL 10 MG CAPSULE PO SCH (05:00)
[2020-06-25] MEDS ORDERED: LORazepam 0.5 MG TABLET PO ONE (05:00)
[2020-06-25] MEDS: NICOTINE 7 MG/24 HOURS TOPICAL PATCH TD SCH (10:28)
[2020-06-25] MEDS: PRENATAL VITAMINS W/ FOLIC ACID TABLET (FP) PO SCH (10:28)
[2020-06-25] MEDS: amLODIPine BESYLATE 10 MG TABLET (FP) PO SCH (10:28)
[2020-06-25 13:23] VITALS: BP 132/87; PULSE 115; TEMP 98.2
[2020-06-26] MEDS ORDERED: chlordiazePOXIDE HCL 10 MG CAPSULE PO ONE (05:00)
[2020-06-30] MEDS ORDERED: PENICILLIN G BENZATHINE 2,400,000 UNIT/4 ML PFS IM ONE (18:00)
[2020-07-07] MEDS ORDERED: PENICILLIN G BENZATHINE 2,400,000 UNIT/4 ML PFS IM ONE (18:00)
== END 2020-06-25 13:45 | disposition other institution (70) | DRG 775 ==
LOC: YASAS 08:44 → Y3N 12:05
PROVIDERS: ADMIT Allergy & Immunology; ATTEND Allergy & Immunology
PROC: HZ2ZZZZ Detoxification Services for Substance Abuse Treatment (ICD-10-PCS; principal; 2020-06-21)
DX: F10.230 Alcohol dependence with withdrawal, uncomplicated (principal); F17.210 Nicotine dependence, cigarettes, uncomplicated; F10.282 Alcohol dependence with alcohol-induced sleep disorder; F10.24 Alcohol dependence with alcohol-induced mood disorder; F34.1 Dysthymic disorder; A53.0 Latent syphilis, unspecified as early or late; G47.00 Insomnia, unspecified; G40.909 Epilepsy, unspecified, not intractable, without status epilepticus; I10 Essential (primary) hypertension; J45.909 Unspecified asthma, uncomplicated; K21.9 Gastro-esophageal reflux disease without esophagitis; K76.0 Fatty (change of) liver, not elsewhere classified; M54.5 Low back pain; R94.5 Abnormal results of liver function studies; R00.0 Tachycardia, unspecified; Z91.018 Allergy to other foods; Z59.0 Homelessness; Z87.39 Personal history of other diseases of the musculoskeletal system and connective tissue
CPT/HCPCS: 36415; 80053; 82247; 84450; 84460; 85025; 85027; 86593; 86780; C9803; U0003

== ENCOUNTER 2020-06-25 13:59 | Inpatient (IN) | payer OTHER ==
[2020-06-25] MEDS ORDERED: MAGNESIUM HYDROX 2400MG/30ML ORAL SUSPENSION 30 ML CUP PO PRN (15:07)
[2020-06-25] MEDS ORDERED: MENTHOL/PHENOL 1 EACH UD MM PRN (15:07)
[2020-06-25] MEDS ORDERED: guaiFENesin 200 MG/10 ML 10 ML UNIT-DOSE CUPS PO PRN (15:07)
[2020-06-25] MEDS ORDERED: MAGNESIUM CITRATE 300 ML BOTTLE PO PRN (15:07)
[2020-06-25] MEDS ORDERED: NICOTINE POLACRILEX 2 MG GUM BUC PRN (15:07)
[2020-06-25] MEDS ORDERED: P-EPHED 60MG/TRIPROLIDI 2.5MG TABLET PO PRN (15:07)
[2020-06-25] MEDS ORDERED: LOPERAMIDE HCL 2 MG CAPSULE PO PRN (15:07)
[2020-06-25] MEDS ORDERED: ACETAMINOPHEN 325 MG TABLET (FP) PO PRN (15:07)
[2020-06-25] MEDS ORDERED: MAG HYDROX/AL HYDROX/SIMETH 30 ML UNIT-DOSE CUP PO PRN (15:07)
[2020-06-25] MEDS: MELATONIN 5 MG TABLETS PO SCH (21:18)
[2020-06-25] MEDS: THIAMINE HCL 100 MG TABLET (FP) PO SCH (21:18)
[2020-06-25] MEDS: hydrOXYzine PAMOATE 25 MG CAPSULE (FP) PO PRN (21:18)
[2020-06-26] MEDS: PRENATAL VITAMINS W/ FOLIC ACID TABLET (FP) PO SCH (10:18)
[2020-06-26] MEDS: NICOTINE 7 MG/24 HOURS TOPICAL PATCH TD SCH (10:18)
[2020-06-26] MEDS: MELATONIN 5 MG TABLETS PO SCH (21:31)
[2020-06-26] MEDS: THIAMINE HCL 100 MG TABLET (FP) PO SCH (21:31)
[2020-06-27] MEDS: PRENATAL VITAMINS W/ FOLIC ACID TABLET (FP) PO SCH (10:03)
[2020-06-27] MEDS: NICOTINE 7 MG/24 HOURS TOPICAL PATCH TD SCH (10:03)
[2020-06-27] MEDS: THIAMINE HCL 100 MG TABLET (FP) PO SCH (21:39)
[2020-06-27] MEDS: MELATONIN 5 MG TABLETS PO SCH (21:39)
[2020-06-28] MEDS: PRENATAL VITAMINS W/ FOLIC ACID TABLET (FP) PO SCH (09:12)
[2020-06-28] MEDS: NICOTINE 7 MG/24 HOURS TOPICAL PATCH TD SCH (09:13)
[2020-06-28] MEDS: MELATONIN 5 MG TABLETS PO SCH (21:24)
[2020-06-28] MEDS: THIAMINE HCL 100 MG TABLET (FP) PO SCH (21:24)
[2020-06-29] MEDS: PRENATAL VITAMINS W/ FOLIC ACID TABLET (FP) PO SCH (10:01)
[2020-06-29] MEDS: NICOTINE 7 MG/24 HOURS TOPICAL PATCH TD SCH (10:01)
[2020-06-29] MEDS: MELATONIN 5 MG TABLETS PO SCH (21:35)
[2020-06-29] MEDS: THIAMINE HCL 100 MG TABLET (FP) PO SCH (21:35)
[2020-06-29] MEDS: hydrOXYzine PAMOATE 25 MG CAPSULE (FP) PO PRN (21:35)
[2020-06-30] MEDS: PRENATAL VITAMINS W/ FOLIC ACID TABLET (FP) PO SCH (09:42)
[2020-06-30] MEDS: NICOTINE 7 MG/24 HOURS TOPICAL PATCH TD SCH (09:42)
[2020-06-30] MEDS: THIAMINE HCL 100 MG TABLET (FP) PO SCH (21:20)
[2020-06-30] MEDS: hydrOXYzine PAMOATE 25 MG CAPSULE (FP) PO PRN (21:20)
[2020-06-30] MEDS: MELATONIN 5 MG TABLETS PO SCH (21:20)
[2020-07-01] MEDS: PRENATAL VITAMINS W/ FOLIC ACID TABLET (FP) PO SCH (09:57)
[2020-07-01] MEDS: NICOTINE 7 MG/24 HOURS TOPICAL PATCH TD SCH (09:58)
[2020-07-01] MEDS: THIAMINE HCL 100 MG TABLET (FP) PO SCH (21:33)
[2020-07-01] MEDS: MELATONIN 5 MG TABLETS PO SCH (21:33)
[2020-07-01] MEDS: hydrOXYzine PAMOATE 25 MG CAPSULE (FP) PO PRN (21:33)
[2020-07-02] MEDS: NICOTINE 7 MG/24 HOURS TOPICAL PATCH TD SCH (09:55)
[2020-07-02] MEDS: PRENATAL VITAMINS W/ FOLIC ACID TABLET (FP) PO SCH (09:55)
[2020-07-02] MEDS: MELATONIN 5 MG TABLETS PO SCH (21:39)
[2020-07-02] MEDS: THIAMINE HCL 100 MG TABLET (FP) PO SCH (21:39)
[2020-07-03] MEDS: PRENATAL VITAMINS W/ FOLIC ACID TABLET (FP) PO SCH (09:51)
[2020-07-03] MEDS: NICOTINE 7 MG/24 HOURS TOPICAL PATCH TD SCH (09:51)
[2020-07-03] MEDS: THIAMINE HCL 100 MG TABLET (FP) PO SCH (21:40)
[2020-07-03] MEDS: hydrOXYzine PAMOATE 25 MG CAPSULE (FP) PO PRN (21:40)
[2020-07-03] MEDS: MELATONIN 5 MG TABLETS PO SCH (21:40)
[2020-07-04] MEDS: PRENATAL VITAMINS W/ FOLIC ACID TABLET (FP) PO SCH (10:03)
[2020-07-04] MEDS: NICOTINE 7 MG/24 HOURS TOPICAL PATCH TD SCH (10:03)
[2020-07-04] MEDS: MELATONIN 5 MG TABLETS PO SCH (21:24)
[2020-07-04] MEDS: THIAMINE HCL 100 MG TABLET (FP) PO SCH (21:24)
[2020-07-04] MEDS: hydrOXYzine PAMOATE 25 MG CAPSULE (FP) PO PRN (21:24)
[2020-07-05] MEDS: NICOTINE 7 MG/24 HOURS TOPICAL PATCH TD SCH (10:03)
[2020-07-05] MEDS: PRENATAL VITAMINS W/ FOLIC ACID TABLET (FP) PO SCH (10:03)
[2020-07-05] MEDS: MELATONIN 5 MG TABLETS PO SCH (21:32)
[2020-07-05] MEDS: hydrOXYzine PAMOATE 25 MG CAPSULE (FP) PO PRN (21:32)
[2020-07-05] MEDS: THIAMINE HCL 100 MG TABLET (FP) PO SCH (21:32)
[2020-07-06] MEDS: PRENATAL VITAMINS W/ FOLIC ACID TABLET (FP) PO SCH (09:56)
[2020-07-06] MEDS: NICOTINE 7 MG/24 HOURS TOPICAL PATCH TD SCH (09:57)
[2020-07-06] MEDS: THIAMINE HCL 100 MG TABLET (FP) PO SCH (21:38)
[2020-07-06] MEDS: MELATONIN 5 MG TABLETS PO SCH (21:38)
[2020-07-07] MEDS: NICOTINE 7 MG/24 HOURS TOPICAL PATCH TD SCH (10:05)
[2020-07-07] MEDS: PRENATAL VITAMINS W/ FOLIC ACID TABLET (FP) PO SCH (10:05)
[2020-07-07] MEDS: THIAMINE HCL 100 MG TABLET (FP) PO SCH (21:50)
[2020-07-07] MEDS: MELATONIN 5 MG TABLETS PO SCH (21:50)
[2020-07-08] MEDS: PRENATAL VITAMINS W/ FOLIC ACID TABLET (FP) PO SCH (10:10)
[2020-07-08] MEDS: NICOTINE 7 MG/24 HOURS TOPICAL PATCH TD SCH (10:10)
[2020-07-08] MEDS ORDERED: ALBUTEROL SO4 HFA INHALER IH PRN (11:08)
[2020-07-08] MEDS: amLODIPine BESYLATE 10 MG TABLET (FP) PO SCH (12:41)
[2020-07-08] MEDS: THIAMINE HCL 100 MG TABLET (FP) PO SCH (21:38)
[2020-07-08] MEDS: MELATONIN 5 MG TABLETS PO SCH (21:38)
[2020-07-09] MEDS: NICOTINE 7 MG/24 HOURS TOPICAL PATCH TD SCH (10:03)
[2020-07-09] MEDS: amLODIPine BESYLATE 10 MG TABLET (FP) PO SCH (10:03)
[2020-07-09] MEDS: PRENATAL VITAMINS W/ FOLIC ACID TABLET (FP) PO SCH (10:03)
[2020-07-09] MEDS: THIAMINE HCL 100 MG TABLET (FP) PO SCH (21:30)
[2020-07-09] MEDS: MELATONIN 5 MG TABLETS PO SCH (21:30)
[2020-07-09] MEDS: hydrOXYzine PAMOATE 25 MG CAPSULE (FP) PO PRN (21:30)
[2020-07-10] MEDS: amLODIPine BESYLATE 10 MG TABLET (FP) PO SCH (09:51)
[2020-07-10] MEDS: NICOTINE 7 MG/24 HOURS TOPICAL PATCH TD SCH (09:51)
[2020-07-10] MEDS: PRENATAL VITAMINS W/ FOLIC ACID TABLET (FP) PO SCH (09:51)
[2020-07-10] MEDS: THIAMINE HCL 100 MG TABLET (FP) PO SCH (21:46)
[2020-07-10] MEDS: MELATONIN 5 MG TABLETS PO SCH (21:46)
[2020-07-10] MEDS: hydrOXYzine PAMOATE 25 MG CAPSULE (FP) PO PRN (21:46)
[2020-07-11] MEDS: amLODIPine BESYLATE 10 MG TABLET (FP) PO SCH (10:04)
[2020-07-11] MEDS: NICOTINE 7 MG/24 HOURS TOPICAL PATCH TD SCH (10:04)
[2020-07-11] MEDS: PRENATAL VITAMINS W/ FOLIC ACID TABLET (FP) PO SCH (10:05)
[2020-07-11] MEDS: THIAMINE HCL 100 MG TABLET (FP) PO SCH (21:19)
[2020-07-11] MEDS: hydrOXYzine PAMOATE 25 MG CAPSULE (FP) PO PRN (21:19)
[2020-07-11] MEDS: MELATONIN 5 MG TABLETS PO SCH (21:19)
[2020-07-12] MEDS: NICOTINE 7 MG/24 HOURS TOPICAL PATCH TD SCH (10:22)
[2020-07-12] MEDS: PRENATAL VITAMINS W/ FOLIC ACID TABLET (FP) PO SCH (10:22)
[2020-07-12] MEDS: amLODIPine BESYLATE 10 MG TABLET (FP) PO SCH (10:27)
[2020-07-12] MEDS: MELATONIN 5 MG TABLETS PO SCH (21:33)
[2020-07-12] MEDS: THIAMINE HCL 100 MG TABLET (FP) PO SCH (21:33)
[2020-07-13] MEDS: amLODIPine BESYLATE 10 MG TABLET (FP) PO SCH (09:39)
[2020-07-13] MEDS: PRENATAL VITAMINS W/ FOLIC ACID TABLET (FP) PO SCH (09:39)
[2020-07-13] MEDS: NICOTINE 7 MG/24 HOURS TOPICAL PATCH TD SCH (09:39)
[2020-07-13] MEDS: THIAMINE HCL 100 MG TABLET (FP) PO SCH (21:23)
[2020-07-13] MEDS: MELATONIN 5 MG TABLETS PO SCH (21:23)
[2020-07-13] MEDS: hydrOXYzine PAMOATE 25 MG CAPSULE (FP) PO PRN (21:23)
[2020-07-14] MEDS: amLODIPine BESYLATE 10 MG TABLET (FP) PO SCH (09:36)
[2020-07-14] MEDS: PRENATAL VITAMINS W/ FOLIC ACID TABLET (FP) PO SCH (09:36)
[2020-07-14] MEDS: NICOTINE 7 MG/24 HOURS TOPICAL PATCH TD SCH (09:36)
[2020-07-14] MEDS: IBUPROFEN 400 MG TABLET (FP) PO PRN ×2 (14:17→21:25)
[2020-07-14] MEDS: THIAMINE HCL 100 MG TABLET (FP) PO SCH (21:24)
[2020-07-14] MEDS: MELATONIN 5 MG TABLETS PO SCH (21:24)
[2020-07-15 07:09] VITALS: BP 106/79; PULSE 85; TEMP 97.5
[2020-07-15] MEDS: PRENATAL VITAMINS W/ FOLIC ACID TABLET (FP) PO SCH (09:28)
[2020-07-15] MEDS: amLODIPine BESYLATE 10 MG TABLET (FP) PO SCH (09:29)
== END 2020-07-15 09:33 | disposition home or self-care (01) | DRG 772 ==
LOC: YASAS 13:59 → Y5N 14:02
PROVIDERS: ADMIT Allergy & Immunology; ATTEND Allergy & Immunology
PROC: HZ42ZZZ Group Counseling for Substance Abuse Treatment, Cognitive-Behavioral (ICD-10-PCS; principal; 2020-06-25)
DX: F10.20 Alcohol dependence, uncomplicated (principal); F32.9 Major depressive disorder, single episode, unspecified; G40.909 Epilepsy, unspecified, not intractable, without status epilepticus; I10 Essential (primary) hypertension; J45.909 Unspecified asthma, uncomplicated; K21.9 Gastro-esophageal reflux disease without esophagitis; K70.0 Alcoholic fatty liver; M50.220 Other cervical disc displacement, mid-cervical region, unspecified level; Z86.69 Personal history of other diseases of the nervous system and sense organs; Z91.018 Allergy to other foods
CPT/HCPCS: C9803; U0003

== ENCOUNTER 2020-10-06 15:21 | Inpatient (IN) | payer OTHER ==
[2020-10-06 17:22] VITALS: BMI 31.1
[2020-10-06] MEDS ORDERED: ONDANSETRON *ODT* 4 MG TABLET SL PRN (19:34)
[2020-10-06] MEDS ORDERED: MENTHOL/PHENOL 1 EACH UD MM PRN (19:34)
[2020-10-06] MEDS ORDERED: MAGNESIUM CITRATE 300 ML BOTTLE PO PRN (19:34)
[2020-10-06] MEDS ORDERED: ACETAMINOPHEN 325 MG TABLET (FP) PO PRN ×2 (19:34)
[2020-10-06] MEDS ORDERED: METHOCARBAMOL 500 MG TABLET PO PRN (19:34)
[2020-10-06] MEDS ORDERED: BISMUTH SUBSALICYLATE 524 MG/30 ML UD PO PRN (19:34)
[2020-10-06] MEDS ORDERED: hydrOXYzine PAMOATE 25 MG CAPSULE (FP) PO PRN (19:34)
[2020-10-06] MEDS ORDERED: NICOTINE POLACRILEX 2 MG GUM BUC PRN (19:34)
[2020-10-06] MEDS ORDERED: MAGNESIUM HYDROX 2400MG/30ML ORAL SUSPENSION 30 ML CUP PO PRN (19:34)
[2020-10-06] MEDS ORDERED: chlordiazePOXIDE HCL 25 MG CAPSULE PO PRN (19:34)
[2020-10-06] MEDS ORDERED: IBUPROFEN 400 MG TABLET (FP) PO PRN (19:34)
[2020-10-06] MEDS ORDERED: chlordiazePOXIDE HCL 25 MG CAPSULE ONE (20:59)
[2020-10-06] MEDS: MELATONIN 5 MG TABLETS PO SCH (23:22)
[2020-10-06] MEDS: THIAMINE HCL 100 MG TABLET (FP) PO SCH (23:22)
[2020-10-06] MEDS: chlordiazePOXIDE HCL 25 MG CAPSULE PO SCH (23:22)
[2020-10-07] MEDS: chlordiazePOXIDE HCL 25 MG CAPSULE PO SCH ×4 (05:22→22:41)
[2020-10-07 09:59] LABS: HEMATOCRIT 38.5 % (35.4-49); HEMOGLOBIN 12.9 GM/dL (11.7-16.9); MCH 30.3 pg (25.7-33.7); MCHC 33.5 g/dl (32.0-35.9); MEAN CELL VOLUME 90.5 fl (80-96); MEAN PLT VOLUME 7.8 fl (7.5-11.1); PLATELET COUNT 157 K/MM3 (134-434); RBC 4.25 M/mm3 (4.00-5.60); RDW 14.2 % (11.9-15.9); WHITE BLOOD COUNT 6.5 K/mm3 (4.0-10.0)
[2020-10-07] MEDS: NICOTINE 7 MG/24 HOURS TOPICAL PATCH TD SCH (10:28)
[2020-10-07] MEDS: PRENATAL VITAMINS W/ FOLIC ACID TABLET (FP) PO SCH (10:28)
[2020-10-07 10:45] LABS: ALBUMIN 3.2 g/dl (3.4-5.0); BLOOD UREA NITROGEN 8.3 mg/dL (7-18); CALCIUM 8.3 mg/dL (8.5-10.1)
[2020-10-07 10:48] LABS: CREATININE 0.9 mg/dL (0.55-1.3)
[2020-10-07 10:49] LABS: BILIRUBIN,TOTAL 0.6 mg/dL (0.2-1); TOT PROT 6.6 g/dl (6.4-8.2)
[2020-10-07] MEDS: THIAMINE HCL 100 MG TABLET (FP) PO SCH (22:41)
[2020-10-07] MEDS: MELATONIN 5 MG TABLETS PO SCH (22:42)
[2020-10-08] MEDS: MAG HYDROX/AL HYDROX/SIMETH 30 ML UNIT-DOSE CUP PO PRN (04:50)
[2020-10-08] MEDS: chlordiazePOXIDE HCL 25 MG CAPSULE PO SCH ×4 (05:15→22:30)
[2020-10-08] MEDS: NICOTINE 7 MG/24 HOURS TOPICAL PATCH TD SCH (10:22)
[2020-10-08] MEDS: PRENATAL VITAMINS W/ FOLIC ACID TABLET (FP) PO SCH (10:22)
[2020-10-08] MEDS: MELATONIN 5 MG TABLETS PO SCH (22:31)
[2020-10-08] MEDS: THIAMINE HCL 100 MG TABLET (FP) PO SCH (22:31)
[2020-10-09] MEDS ORDERED: chlordiazePOXIDE HCL 10 MG CAPSULE PO PRN
[2020-10-09] MEDS: MAG HYDROX/AL HYDROX/SIMETH 30 ML UNIT-DOSE CUP PO PRN ×2 (02:48→23:47)
[2020-10-09] MEDS: chlordiazePOXIDE HCL 10 MG CAPSULE PO SCH ×4 (05:19→22:48)
[2020-10-09] MEDS: PRENATAL VITAMINS W/ FOLIC ACID TABLET (FP) PO SCH (10:33)
[2020-10-09] MEDS: NICOTINE 7 MG/24 HOURS TOPICAL PATCH TD SCH (10:34)
[2020-10-09] MEDS: THIAMINE HCL 100 MG TABLET (FP) PO SCH (22:48)
[2020-10-09] MEDS: MELATONIN 5 MG TABLETS PO SCH (22:48)
[2020-10-10] MEDS: chlordiazePOXIDE HCL 10 MG CAPSULE PO SCH ×2 (05:25→18:15)
[2020-10-10 07:27] LABS: SARS-CoV-2 NAA Not Detected (Not Detected)
[2020-10-10] MEDS: NICOTINE 7 MG/24 HOURS TOPICAL PATCH TD SCH (10:28)
[2020-10-10] MEDS: PRENATAL VITAMINS W/ FOLIC ACID TABLET (FP) PO SCH (10:28)
[2020-10-10] MEDS: THIAMINE HCL 100 MG TABLET (FP) PO SCH (22:30)
[2020-10-10] MEDS: MELATONIN 5 MG TABLETS PO SCH (22:30)
[2020-10-10] MEDS: MAG HYDROX/AL HYDROX/SIMETH 30 ML UNIT-DOSE CUP PO PRN (23:52)
[2020-10-11] MEDS ORDERED: chlordiazePOXIDE HCL 10 MG CAPSULE PO ONE (05:00)
[2020-10-11 07:00] VITALS: BP 112/73; PULSE 96; TEMP 97.4
== END 2020-10-11 09:27 | disposition home or self-care (01) | DRG 775 ==
LOC: YASAS 15:21 → Y6N 22:31 → Y3N 10-09 17:48
PROVIDERS: ADMIT Allergy & Immunology; ATTEND Allergy & Immunology
PROC: HZ2ZZZZ Detoxification Services for Substance Abuse Treatment (ICD-10-PCS; principal; 2020-10-06)
DX: F10.230 Alcohol dependence with withdrawal, uncomplicated (principal); F17.210 Nicotine dependence, cigarettes, uncomplicated; F10.282 Alcohol dependence with alcohol-induced sleep disorder; F10.24 Alcohol dependence with alcohol-induced mood disorder; F19.24 Other psychoactive substance dependence with psychoactive substance-induced mood disorder; F34.1 Dysthymic disorder; I10 Essential (primary) hypertension; J45.909 Unspecified asthma, uncomplicated; K76.0 Fatty (change of) liver, not elsewhere classified; K21.9 Gastro-esophageal reflux disease without esophagitis; M54.5 Low back pain; G89.29 Other chronic pain; A53.0 Latent syphilis, unspecified as early or late; Z86.69 Personal history of other diseases of the nervous system and sense organs
CPT/HCPCS: 36415; 80053; 85027; 86593; 86780; C9803; U0003; U0005

== ENCOUNTER 2022-07-28 12:30 | Inpatient (IN) | payer OTHER ==
[2022-07-28 13:23] VITALS: BMI 24.4
[2022-07-28] MEDS ORDERED: LOPERAMIDE HCL 2 MG CAPSULE PO PRN (15:15)
[2022-07-28] MEDS ORDERED: ONDANSETRON *ODT* 4 MG TABLET SL PRN (15:15)
[2022-07-28] MEDS ORDERED: POLYETHYLENE GLYCOL (HEALTHYLAX) 3350 17 GM PACKET PO PRN (15:15)
[2022-07-28] MEDS ORDERED: BISMUTH SUBSALICYLATE 524 MG/30 ML PO PRN (15:15)
[2022-07-28] MEDS ORDERED: LORazepam 2 MG TABLET PO ONE (15:15)
[2022-07-28] MEDS ORDERED: LORazepam 1 MG TABLET PO PRN (15:15)
[2022-07-28] MEDS ORDERED: IBUPROFEN 400 MG TABLET (FP) PO PRN (15:15)
[2022-07-28] MEDS ORDERED: BENZOCAINE/MENTHOL (CHLORASEPTIC ) LOZENGE MM PRN (15:15)
[2022-07-28] MEDS ORDERED: MAGNESIUM HYDROX 2400MG/30ML ORAL SUSPENSION 30 ML CUP PO PRN (15:15)
[2022-07-28] MEDS ORDERED: NICOTINE 10 MG CARTRIDGE (INHALER) IH PRN (15:15)
[2022-07-28] MEDS ORDERED: NALOXONE HCL (KLOXXADO) 8 MG SPRAY NS PRN (15:15)
[2022-07-28] MEDS ORDERED: MAG HYDROX/AL HYDROX/SIMETH 30 ML UNIT-DOSE CUP PO PRN (15:15)
[2022-07-28] MEDS ORDERED: ACETAMINOPHEN 325 MG TABLET (FP) PO PRN ×2 (15:15)
[2022-07-28] MEDS ORDERED: DICYCLOMINE HCL 10 MG CAPSULE PO PRN (15:15)
[2022-07-28] MEDS ORDERED: ALBUTEROL SO4 HFA INHALER IH PRN (15:18)
[2022-07-28] MEDS: PRENATAL VITAMINS W/ FOLIC ACID TABLET (FP) PO SCH (15:48)
[2022-07-28] MEDS: LORazepam 2 MG TABLET PO SCH ×2 (17:40→22:15)
[2022-07-28] MEDS: THIAMINE HCL 100 MG TABLET (FP) PO SCH (22:15)
[2022-07-28] MEDS: MELATONIN 5 MG TABLETS PO SCH (22:16)
[2022-07-29] MEDS: LORazepam 2 MG TABLET PO SCH ×4 (05:43→22:29)
[2022-07-29] MEDS: PRENATAL VITAMINS W/ FOLIC ACID TABLET (FP) PO SCH (10:21)
[2022-07-29] MEDS: METHOCARBAMOL 500 MG TABLET PO PRN (10:21)
[2022-07-29] MEDS: hydrOXYzine PAMOATE 25 MG CAPSULE (FP) PO PRN (10:21)
[2022-07-29] MEDS: amLODIPine BESYLATE 10 MG TABLET (FP) PO SCH (10:45)
[2022-07-29 11:02] LABS: HEMATOCRIT 38.8 % (35.4-49); HEMOGLOBIN 13.4 GM/dL (11.7-16.9); MCH 33.5 pg (25.7-33.7); MCHC 34.4 g/dl (32.0-35.9); MEAN CELL VOLUME 97.5 fl (80-96); MEAN PLT VOLUME 8.4 fl (7.5-11.1); PLATELET COUNT 78 10^3/uL (134-434); RBC 3.98 M/mm3 (4.00-5.60); RDW 14.1 % (11.9-15.9); WHITE BLOOD COUNT 4.7 K/mm3 (4.0-10.0)
[2022-07-29 11:45] LABS: CALCIUM 8.6 mg/dL (8.5-10.1)
[2022-07-29 11:46] LABS: ALBUMIN 3.3 g/dl (3.4-5.0); BLOOD UREA NITROGEN 6.8 mg/dL (7-18)
[2022-07-29 11:49] LABS: CREATININE 0.8 mg/dL (0.55-1.3)
[2022-07-29 11:50] LABS: BILIRUBIN,TOTAL 1.1 mg/dL (0.2-1)
[2022-07-29 11:51] LABS: TOT PROT 7.1 g/dl (6.4-8.2)
[2022-07-29] MEDS: THIAMINE HCL 100 MG TABLET (FP) PO SCH (22:29)
[2022-07-29] MEDS: MELATONIN 5 MG TABLETS PO SCH (22:31)
[2022-07-30] MEDS: LORazepam 1 MG TABLET PO SCH ×4 (05:16→22:20)
[2022-07-30] MEDS: METHOCARBAMOL 500 MG TABLET PO PRN (09:00)
[2022-07-30] MEDS: IBUPROFEN 600 MG TABLET (FP) PO PRN (09:00)
[2022-07-30] MEDS: amLODIPine BESYLATE 10 MG TABLET (FP) PO SCH (10:31)
[2022-07-30] MEDS: PRENATAL VITAMINS W/ FOLIC ACID TABLET (FP) PO SCH (10:31)
[2022-07-30] MEDS: hydrOXYzine PAMOATE 25 MG CAPSULE (FP) PO PRN (10:32)
[2022-07-30] MEDS: THIAMINE HCL 100 MG TABLET (FP) PO SCH (22:20)
[2022-07-30] MEDS: MELATONIN 5 MG TABLETS PO SCH (22:21)
[2022-07-31] MEDS ORDERED: LORazepam 0.5 MG TABLET PO PRN
[2022-07-31] MEDS: LORazepam 0.5 MG TABLET PO SCH ×4 (05:27→22:13)
[2022-07-31] MEDS: IBUPROFEN 600 MG TABLET (FP) PO PRN (07:39)
[2022-07-31] MEDS: METHOCARBAMOL 500 MG TABLET PO PRN (07:40)
[2022-07-31] MEDS: hydrOXYzine PAMOATE 25 MG CAPSULE (FP) PO PRN (10:17)
[2022-07-31] MEDS: PRENATAL VITAMINS W/ FOLIC ACID TABLET (FP) PO SCH (10:17)
[2022-07-31] MEDS: amLODIPine BESYLATE 10 MG TABLET (FP) PO SCH (10:18)
[2022-07-31 20:57] VITALS: TEMP 97.5
[2022-07-31] MEDS: THIAMINE HCL 100 MG TABLET (FP) PO SCH (22:13)
[2022-07-31] MEDS: MELATONIN 5 MG TABLETS PO SCH (22:13)
[2022-08-01] MEDS ORDERED: LORazepam 0.5 MG TABLET PO ONE (05:00)
[2022-08-01 05:59] VITALS: RESP 17
[2022-08-01 09:17] VITALS: BP 133/78; PULSE 88
[2022-08-01] MEDS: PRENATAL VITAMINS W/ FOLIC ACID TABLET (FP) PO SCH (10:31)
[2022-08-01] MEDS: amLODIPine BESYLATE 10 MG TABLET (FP) PO SCH (10:31)
== END 2022-08-01 10:52 | disposition home or self-care (01) | DRG 775 ==
LOC: YASAS 12:30 → Y6N 15:22
PROVIDERS: ADMIT Allergy & Immunology; ATTEND Surgery
PROC: HZ2ZZZZ Detoxification Services for Substance Abuse Treatment (ICD-10-PCS; principal; 2022-07-28)
DX: F10.230 Alcohol dependence with withdrawal, uncomplicated (principal); F17.210 Nicotine dependence, cigarettes, uncomplicated; F10.282 Alcohol dependence with alcohol-induced sleep disorder; F10.24 Alcohol dependence with alcohol-induced mood disorder; F19.24 Other psychoactive substance dependence with psychoactive substance-induced mood disorder; I10 Essential (primary) hypertension; J45.909 Unspecified asthma, uncomplicated; K21.9 Gastro-esophageal reflux disease without esophagitis; K76.0 Fatty (change of) liver, not elsewhere classified; G40.509 Epileptic seizures related to external causes, not intractable, without status epilepticus; M54.50 Low back pain, unspecified; G89.29 Other chronic pain; R11.2 Nausea with vomiting, unspecified; Z86.69 Personal history of other diseases of the nervous system and sense organs
CPT/HCPCS: 36415; 80053; 85027; 86593; 86780; C9803-CS; U0003; U0005

== ENCOUNTER 2022-11-09 19:43 | Inpatient (IN) | payer OTHER ==
[2022-11-09 21:06] VITALS: BMI 24.4
[2022-11-09] MEDS ORDERED: NICOTINE POLACRILEX 2 MG GUM BUC PRN (21:54)
[2022-11-09] MEDS ORDERED: NICOTINE 10 MG CARTRIDGE (INHALER) IH PRN (21:54)
[2022-11-09] MEDS ORDERED: LOPERAMIDE HCL 2 MG CAPSULE PO PRN (21:54)
[2022-11-09] MEDS ORDERED: P-EPHED 60MG/TRIPROLIDI 2.5MG TABLET PO PRN (21:54)
[2022-11-09] MEDS ORDERED: IBUPROFEN 400 MG TABLET (FP) PO PRN (21:54)
[2022-11-09] MEDS ORDERED: POLYETHYLENE GLYCOL (HEALTHYLAX) 3350 17 GM PACKET PO PRN (21:54)
[2022-11-09] MEDS ORDERED: guaiFENesin 600 MG TABLET.ER (FP) PO PRN (21:54)
[2022-11-09] MEDS ORDERED: BISMUTH SUBSALICYLATE 524 MG/30 ML PO PRN (21:54)
[2022-11-09] MEDS ORDERED: NALOXONE HCL 0.4 MG/ML VIAL IM PRN (21:54)
[2022-11-09] MEDS ORDERED: ACETAMINOPHEN 325 MG TABLET (FP) PO PRN (21:54)
[2022-11-09] MEDS ORDERED: IBUPROFEN 600 MG TABLET (FP) PO PRN (21:54)
[2022-11-09] MEDS ORDERED: ONDANSETRON *ODT* 4 MG TABLET SL PRN (21:54)
[2022-11-09] MEDS ORDERED: ALBUTEROL SO4 HFA INHALER IH PRN (21:54)
[2022-11-09] MEDS ORDERED: NALOXONE HCL (KLOXXADO) 8 MG SPRAY NS PRN (21:54)
[2022-11-09] MEDS ORDERED: MAGNESIUM HYDROX 2400MG/30ML ORAL SUSPENSION 30 ML CUP PO PRN (21:54)
[2022-11-09] MEDS ORDERED: BENZONATATE 200 MG CAPSULE PO PRN (21:54)
[2022-11-09] MEDS ORDERED: DICYCLOMINE HCL 10 MG CAPSULE PO PRN (21:54)
[2022-11-09] MEDS ORDERED: BENZOCAINE/MENTHOL (CHLORASEPTIC ) LOZENGE MM PRN (21:54)
[2022-11-09] MEDS ORDERED: chlordiazePOXIDE HCL 25 MG CAPSULE PO PRN (21:56)
[2022-11-09] MEDS ORDERED: guaiFENesin 200 MG/10 ML 10 ML UNIT-DOSE CUPS PO PRN (23:50)
[2022-11-10] MEDS: chlordiazePOXIDE HCL 25 MG CAPSULE PO SCH ×5 (05:55→22:15)
[2022-11-10 09:43] LABS: HEMATOCRIT 36.8 % (35.4-49); HEMOGLOBIN 12.3 GM/dL (11.7-16.9); MCH 31.6 pg (25.7-33.7); MCHC 33.4 g/dl (32.0-35.9); MEAN CELL VOLUME 94.6 fl (80-96); MEAN PLT VOLUME 7.2 fl (7.5-11.1); PLATELET COUNT 159 10^3/uL (134-434); RBC 3.89 M/mm3 (4.00-5.60); RDW 14.2 % (11.9-15.9); WHITE BLOOD COUNT 4.6 K/mm3 (4.0-10.0)
[2022-11-10 09:56] LABS: POTASSIUM 3.5 mmol/L (3.5-5.1)
[2022-11-10 09:59] LABS: ALBUMIN 3.2 g/dl (3.4-5.0); CALCIUM 8.3 mg/dL (8.5-10.1)
[2022-11-10 10:00] LABS: BLOOD UREA NITROGEN 10.5 mg/dL (7-18)
[2022-11-10 10:03] LABS: CREATININE 0.8 mg/dL (0.55-1.3)
[2022-11-10 10:04] LABS: BILIRUBIN,TOTAL 0.4 mg/dL (0.2-1); TOT PROT 7.1 g/dl (6.4-8.2)
[2022-11-10] MEDS: PRENATAL VITAMINS W/ FOLIC ACID TABLET (FP) PO SCH (10:28)
[2022-11-10] MEDS: NICOTINE 7 MG/24 HOURS TOPICAL PATCH TD SCH (10:29)
[2022-11-10] MEDS: amLODIPine BESYLATE 10 MG TABLET (FP) PO SCH (11:50)
[2022-11-10] MEDS: THIAMINE HCL 100 MG TABLET (FP) PO SCH ×2 (17:29→22:16)
[2022-11-10] MEDS: MELATONIN 5 MG TABLETS PO PRN (22:16)
[2022-11-11] MEDS: chlordiazePOXIDE HCL 25 MG CAPSULE PO SCH ×4 (05:45→22:30)
[2022-11-11] MEDS: amLODIPine BESYLATE 10 MG TABLET (FP) PO SCH (10:26)
[2022-11-11] MEDS: PRENATAL VITAMINS W/ FOLIC ACID TABLET (FP) PO SCH (10:26)
[2022-11-11] MEDS: NICOTINE 7 MG/24 HOURS TOPICAL PATCH TD SCH (10:27)
[2022-11-11] MEDS: hydrOXYzine PAMOATE 25 MG CAPSULE (FP) PO PRN ×2 (13:10→22:30)
[2022-11-11] MEDS ORDERED: LISINOPRIL 10 MG TABLET PO ONE (13:49)
[2022-11-11] MEDS: MAG HYDROX/AL HYDROX/SIMETH 30 ML UNIT-DOSE CUP PO PRN (19:38)
[2022-11-11] MEDS: LISINOPRIL 10 MG TABLET PO SCH (22:30)
[2022-11-11] MEDS: THIAMINE HCL 100 MG TABLET (FP) PO SCH (22:30)
[2022-11-11] MEDS: MELATONIN 5 MG TABLETS PO PRN (22:30)
[2022-11-12] MEDS ORDERED: chlordiazePOXIDE HCL 10 MG CAPSULE PO PRN
[2022-11-12] MEDS: chlordiazePOXIDE HCL 10 MG CAPSULE PO SCH ×4 (05:46→22:32)
[2022-11-12] MEDS: PRENATAL VITAMINS W/ FOLIC ACID TABLET (FP) PO SCH (10:23)
[2022-11-12] MEDS: amLODIPine BESYLATE 10 MG TABLET (FP) PO SCH (10:24)
[2022-11-12] MEDS: LISINOPRIL 10 MG TABLET PO SCH ×2 (10:24→22:32)
[2022-11-12] MEDS: NICOTINE 7 MG/24 HOURS TOPICAL PATCH TD SCH (10:24)
[2022-11-12] MEDS: THIAMINE HCL 100 MG TABLET (FP) PO SCH (22:32)
[2022-11-12] MEDS: MAG HYDROX/AL HYDROX/SIMETH 30 ML UNIT-DOSE CUP PO PRN (23:17)
[2022-11-13] MEDS: chlordiazePOXIDE HCL 10 MG CAPSULE PO SCH ×2 (05:48→17:37)
[2022-11-13] MEDS: NICOTINE 7 MG/24 HOURS TOPICAL PATCH TD SCH (10:32)
[2022-11-13] MEDS: PRENATAL VITAMINS W/ FOLIC ACID TABLET (FP) PO SCH (10:32)
[2022-11-13] MEDS: LISINOPRIL 10 MG TABLET PO SCH ×2 (10:32→22:22)
[2022-11-13] MEDS: amLODIPine BESYLATE 10 MG TABLET (FP) PO SCH (10:32)
[2022-11-13] MEDS: hydrOXYzine PAMOATE 25 MG CAPSULE (FP) PO PRN ×2 (10:33→22:22)
[2022-11-13] MEDS: THIAMINE HCL 100 MG TABLET (FP) PO SCH (22:22)
[2022-11-14] MEDS ORDERED: chlordiazePOXIDE HCL 10 MG CAPSULE PO ONE (05:00)
[2022-11-14] MEDS: NICOTINE 7 MG/24 HOURS TOPICAL PATCH TD SCH (09:32)
[2022-11-14] MEDS: LISINOPRIL 10 MG TABLET PO SCH (09:32)
[2022-11-14] MEDS: amLODIPine BESYLATE 10 MG TABLET (FP) PO SCH (09:32)
[2022-11-14] MEDS: PRENATAL VITAMINS W/ FOLIC ACID TABLET (FP) PO SCH (09:32)
[2022-11-14 09:55] VITALS: BP 160/73; PULSE 93; RESP 17; TEMP 98.2
== END 2022-11-14 09:45 | disposition home or self-care (01) | DRG 775 ==
LOC: YASAS 19:43 → Y6N 23:08
PROVIDERS: ADMIT Allergy & Immunology; ATTEND Surgery
PROC: HZ2ZZZZ Detoxification Services for Substance Abuse Treatment (ICD-10-PCS; principal; 2022-11-09)
DX: F10.230 Alcohol dependence with withdrawal, uncomplicated (principal); F17.210 Nicotine dependence, cigarettes, uncomplicated; F10.282 Alcohol dependence with alcohol-induced sleep disorder; F32.A Depression, unspecified; G40.509 Epileptic seizures related to external causes, not intractable, without status epilepticus; I10 Essential (primary) hypertension; J45.909 Unspecified asthma, uncomplicated; K21.9 Gastro-esophageal reflux disease without esophagitis; K76.0 Fatty (change of) liver, not elsewhere classified; Z86.19 Personal history of other infectious and parasitic diseases
CPT/HCPCS: 36415; 73130-TC-RT-FY; 80053; 83036; 85027; 86593; 86780; 87635; 93005; 93010

== ENCOUNTER 2023-05-04 14:50 | Inpatient (IN) | payer OTHER ==
[2023-05-04 15:39] VITALS: BMI 24.1
[2023-05-04] MEDS ORDERED: DICYCLOMINE HCL 10 MG CAPSULE PO PRN (17:06)
[2023-05-04] MEDS ORDERED: guaiFENesin 600 MG TABLET.ER (FP) PO PRN (17:06)
[2023-05-04] MEDS ORDERED: BISMUTH SUBSALICYLATE 524 MG/30 ML PO PRN (17:06)
[2023-05-04] MEDS ORDERED: MAG HYDROX/AL HYDROX/SIMETH 30 ML UNIT-DOSE CUP PO PRN (17:06)
[2023-05-04] MEDS ORDERED: IBUPROFEN 400 MG TABLET (FP) PO PRN (17:06)
[2023-05-04] MEDS ORDERED: IBUPROFEN 600 MG TABLET (FP) PO PRN (17:06)
[2023-05-04] MEDS ORDERED: MAGNESIUM HYDROX 2400MG/30ML ORAL SUSPENSION 30 ML CUP PO PRN (17:06)
[2023-05-04] MEDS ORDERED: ONDANSETRON *ODT* 4 MG TABLET SL PRN (17:06)
[2023-05-04] MEDS ORDERED: ACETAMINOPHEN 325 MG TABLET (FP) PO PRN (17:06)
[2023-05-04] MEDS ORDERED: POLYETHYLENE GLYCOL (HEALTHYLAX) 3350 17 GM PACKET PO PRN (17:06)
[2023-05-04] MEDS ORDERED: P-EPHED 60MG/TRIPROLIDI 2.5MG TABLET PO PRN (17:06)
[2023-05-04] MEDS ORDERED: NICOTINE POLACRILEX 2 MG GUM BUC PRN (17:06)
[2023-05-04] MEDS ORDERED: BENZONATATE 200 MG CAPSULE PO PRN (17:06)
[2023-05-04] MEDS ORDERED: LOPERAMIDE HCL 2 MG CAPSULE PO PRN (17:06)
[2023-05-04] MEDS ORDERED: BENZOCAINE/MENTHOL (CHLORASEPTIC ) LOZENGE MM PRN (17:06)
[2023-05-04] MEDS: MELATONIN 5 MG TABLETS PO SCH (22:28)
[2023-05-04] MEDS: THIAMINE HCL 100 MG TABLET (FP) PO SCH (22:28)
[2023-05-04] MEDS ORDERED: TRIMETHOBENZAMIDE HCL 200MG/2ML INJ IM ONE (22:53)
[2023-05-04] MEDS ORDERED: LORazepam 2 MG/ML SDV VIAL IM ONE (22:54)
[2023-05-04] MEDS ORDERED: chlordiazePOXIDE HCL 25 MG CAPSULE PO PRN (22:54)
[2023-05-04] MEDS ORDERED: ALBUTEROL SO4 HFA INHALER IH PRN (23:42)
[2023-05-04] MEDS ORDERED: METOPROLOL TARTRATE 25 MG TABLET (FP) PO ONE (23:42)
[2023-05-04] MEDS: chlordiazePOXIDE HCL 25 MG CAPSULE PO SCH (23:56)
[2023-05-05] MEDS: chlordiazePOXIDE HCL 25 MG CAPSULE PO SCH ×4 (05:27→22:05)
[2023-05-05] MEDS: PRENATAL VITAMINS W/ FOLIC ACID TABLET (FP) PO SCH (10:17)
[2023-05-05] MEDS: amLODIPine BESYLATE 10 MG TABLET (FP) PO SCH (10:17)
[2023-05-05 10:35] LABS: HEMATOCRIT 42.7 % (35.4-49); HEMOGLOBIN 13.7 GM/dL (11.7-16.9); MCH 31.3 pg (25.7-33.7); MCHC 32.1 g/dl (32.0-35.9); MEAN CELL VOLUME 97.6 fl (80-96); MEAN PLT VOLUME 8.6 fl (7.5-11.1); PLATELET COUNT 55 10^3/uL (134-434); RBC 4.38 M/mm3 (4.00-5.60); RDW 14.7 % (11.9-15.9); WHITE BLOOD COUNT 4.3 K/mm3 (4.0-10.0)
[2023-05-05] MEDS ORDERED: chlordiazePOXIDE HCL 25 MG CAPSULE PO ONE (11:37)
[2023-05-05] MEDS ORDERED: TRIMETHOBENZAMIDE HCL 200MG/2ML INJ IM PRN (11:38)
[2023-05-05 12:43] LABS: POTASSIUM 3.4 mmol/L (3.5-5.1)
[2023-05-05 12:50] LABS: CALCIUM 8.8 mg/dL (8.5-10.1)
[2023-05-05 12:51] LABS: ALBUMIN 3.7 g/dl (3.4-5.0); BLOOD UREA NITROGEN 9.2 mg/dL (7-18)
[2023-05-05 12:54] LABS: CREATININE 0.9 mg/dL (0.55-1.3)
[2023-05-05 12:55] LABS: BILIRUBIN,TOTAL 0.8 mg/dL (0.2-1); TOT PROT 7.8 g/dl (6.4-8.2)
[2023-05-05] MEDS: FAMOTIDINE 20 MG TABLET PO SCH (15:20)
[2023-05-05] MEDS: THIAMINE HCL 100 MG TABLET (FP) PO SCH (22:05)
[2023-05-05] MEDS: MELATONIN 5 MG TABLETS PO SCH (22:05)
[2023-05-06] MEDS ORDERED: chlordiazePOXIDE HCL 25 MG CAPSULE PO SCH (05:00)
[2023-05-06] MEDS: chlordiazePOXIDE HCL 25 MG CAPSULE PO SCH (05:33)
[2023-05-06] MEDS: FAMOTIDINE 20 MG TABLET PO SCH ×2 (06:19→16:00)
[2023-05-06 08:09] LABS: COCAINE, UR NEGATIVE (NEGATIVE); OPIATES, URI NEGATIVE (NEGATIVE); PHENCYCLIDINE,URINE NEGATIVE (NEGATIVE); URINE BARBITURATES NEGATIVE (NEGATIVE)
[2023-05-06 08:10] LABS: METHADONE, UR NEGATIVE (NEGATIVE); URINE AMPHETAMINES NEGATIVE (NEGATIVE)
[2023-05-06 08:11] LABS: URINE BENZODIAZEPINES POSITIVE (NEGATIVE)
[2023-05-06] MEDS ORDERED: LORazepam 1 MG TABLET PO PRN (09:53)
[2023-05-06] MEDS: amLODIPine BESYLATE 10 MG TABLET (FP) PO SCH (10:26)
[2023-05-06] MEDS: POTASSIUM CHLORIDE ORAL LIQUID 20 MEQ/15 ML PO SCH (10:26)
[2023-05-06] MEDS: PRENATAL VITAMINS W/ FOLIC ACID TABLET (FP) PO SCH (10:26)
[2023-05-06] MEDS: LORazepam 2 MG TABLET PO SCH ×3 (10:29→22:00)
[2023-05-06] MEDS: THIAMINE HCL 100 MG TABLET (FP) PO SCH (22:00)
[2023-05-06] MEDS: MELATONIN 5 MG TABLETS PO SCH (22:00)
[2023-05-07] MEDS ORDERED: chlordiazePOXIDE HCL 10 MG CAPSULE PO PRN
[2023-05-07] MEDS ORDERED: chlordiazePOXIDE HCL 10 MG CAPSULE PO SCH (05:00)
[2023-05-07] MEDS ORDERED: chlordiazePOXIDE HCL 25 MG CAPSULE PO SCH (05:00)
[2023-05-07] MEDS: LORazepam 2 MG TABLET PO SCH (05:21)
[2023-05-07] MEDS: FAMOTIDINE 20 MG TABLET PO SCH (06:38)
[2023-05-07] MEDS: PRENATAL VITAMINS W/ FOLIC ACID TABLET (FP) PO SCH (09:00)
[2023-05-07] MEDS: amLODIPine BESYLATE 10 MG TABLET (FP) PO SCH (09:00)
[2023-05-07] MEDS: POTASSIUM CHLORIDE ORAL LIQUID 20 MEQ/15 ML PO SCH (09:00)
[2023-05-07 09:16] VITALS: BP 137/83; PULSE 97; RESP 16; TEMP 97.7
[2023-05-08] MEDS ORDERED: chlordiazePOXIDE HCL 10 MG CAPSULE PO PRN
[2023-05-08] MEDS ORDERED: LORazepam 1 MG TABLET PO SCH (05:00)
[2023-05-08] MEDS ORDERED: chlordiazePOXIDE HCL 10 MG CAPSULE PO SCH ×2 (05:00)
[2023-05-09] MEDS ORDERED: LORazepam 0.5 MG TABLET PO PRN
[2023-05-09] MEDS ORDERED: LORazepam 0.5 MG TABLET PO SCH (05:00)
[2023-05-09] MEDS ORDERED: chlordiazePOXIDE HCL 10 MG CAPSULE PO SCH (05:00)
[2023-05-09] MEDS ORDERED: chlordiazePOXIDE HCL 10 MG CAPSULE PO ONE (05:00)
[2023-05-10] MEDS ORDERED: chlordiazePOXIDE HCL 10 MG CAPSULE PO ONE (05:00)
[2023-05-10] MEDS ORDERED: LORazepam 0.5 MG TABLET PO ONE (05:00)
== END 2023-05-07 09:21 | disposition left against medical advice (07) | DRG 770 ==
LOC: YASAS 14:50 → Y6N 18:48
PROVIDERS: ADMIT Allergy & Immunology; ATTEND Surgery
PROC: HZ2ZZZZ Detoxification Services for Substance Abuse Treatment (ICD-10-PCS; principal; 2023-05-04)
DX: F10.230 Alcohol dependence with withdrawal, uncomplicated (principal); F17.210 Nicotine dependence, cigarettes, uncomplicated; F32.A Depression, unspecified; E87.5 Hyperkalemia; D72.819 Decreased white blood cell count, unspecified; I10 Essential (primary) hypertension; J45.20 Mild intermittent asthma, uncomplicated; K21.9 Gastro-esophageal reflux disease without esophagitis; Z86.19 Personal history of other infectious and parasitic diseases; Z56.0 Unemployment, unspecified; Z59.00 Homelessness unspecified
CPT/HCPCS: 36415; 80053; 80307; 85027; 86593; 86780; 87635

== ENCOUNTER 2023-12-13 11:40 | Inpatient (IN) | payer OTHER ==
[2023-12-13 12:25] VITALS: BMI 27.8
[2023-12-13] MEDS ORDERED: ALBUTEROL SO4 HFA INHALER IH PRN (12:37)
[2023-12-13] MEDS ORDERED: IBUPROFEN 600 MG TABLET (FP) PO PRN (12:38)
[2023-12-13] MEDS ORDERED: NICOTINE POLACRILEX 2 MG LOZENGE BC PRN (12:38)
[2023-12-13] MEDS ORDERED: NICOTINE POLACRILEX 2 MG GUM BUC PRN (12:38)
[2023-12-13] MEDS ORDERED: ACETAMINOPHEN 325 MG TABLET (FP) PO PRN (12:38)
[2023-12-13] MEDS ORDERED: MAG HYDROX/AL HYDROX/SIMETH 30 ML UNIT-DOSE CUP PO PRN (12:38)
[2023-12-13] MEDS ORDERED: MAGNESIUM HYDROX 2400MG/30ML ORAL SUSPENSION 30 ML CUP PO PRN (12:38)
[2023-12-13] MEDS ORDERED: POLYETHYLENE GLYCOL (HEALTHYLAX) 3350 17 GM PACKET PO PRN (12:38)
[2023-12-13] MEDS ORDERED: guaiFENesin 600 MG TABLET.ER (FP) PO PRN (12:38)
[2023-12-13] MEDS ORDERED: IBUPROFEN 400 MG TABLET (FP) PO PRN (12:38)
[2023-12-13] MEDS ORDERED: BENZONATATE 200 MG CAPSULE PO PRN (12:38)
[2023-12-13] MEDS ORDERED: BENZOCAINE/MENTHOL (CHLORASEPTIC ) LOZENGE MM PRN (12:38)
[2023-12-13] MEDS ORDERED: LOPERAMIDE HCL 2 MG CAPSULE PO PRN (12:38)
[2023-12-13] MEDS: levETIRAcetam 500 MG TABLET (FP) PO SCH (22:33)
[2023-12-13] MEDS: THIAMINE 100 MG TABLET PO SCH (22:33)
[2023-12-13] MEDS: MELATONIN 5 MG TABLETS PO SCH (22:34)
[2023-12-14] MEDS: PRENATAL VITAMINS W/ FOLIC ACID TABLET (FP) PO SCH (09:55)
[2023-12-14] MEDS: amLODIPine BESYLATE 10 MG TABLET (FP) PO SCH (09:55)
[2023-12-14 11:25] LABS: HEMATOCRIT 42.4 % (35.4-49); HEMOGLOBIN 13.9 GM/dL (11.7-16.9); MCH 31.7 pg (25.7-33.7); MCHC 32.8 g/dl (32.0-35.9); MEAN CELL VOLUME 96.7 fl (80-96); MEAN PLT VOLUME 8.2 fl (7.5-11.1); PLATELET COUNT 176 10^3/uL (134-434); POTASSIUM 4.2 mmol/L (3.5-5.1); RBC 4.38 M/mm3 (4.00-5.60); WHITE BLOOD COUNT 6.9 K/mm3 (4.0-10.0)
[2023-12-14 11:54] LABS: ALBUMIN 3.5 g/dl (3.4-5.0); BLOOD UREA NITROGEN 12.8 mg/dL (7-18); CALCIUM 8.8 mg/dL (8.5-10.1)
[2023-12-14 11:57] LABS: BILIRUBIN,TOTAL 0.3 mg/dL (0.2-1); CREATININE 0.8 mg/dL (0.55-1.3)
[2023-12-14 11:58] LABS: TOT PROT 7.2 g/dl (6.4-8.2)
[2023-12-14] MEDS ORDERED: TUBERCULIN PPD 5 TU/0.1ML VIAL ID ONE (14:28)
[2023-12-15] MEDS ORDERED: BUDESONIDE/FORMETEROL FUMARATE 160/4.5 mcg INHALER IH PRN (12:57)
[2023-12-15] MEDS: AMOX TR/POT CLAV 500MG/125MG TABLETS (FP) PO SCH (17:45)
[2023-12-15 19:22] LABS: URINE APPEARANCE CLEAR; URINE BILIRUBIN NEGATIVE (NEGATIVE); URINE COLOR YELLOW; URINE GLUCOSE (UA) NEGATIVE (NEGATIVE); URINE KETONE TRACE (NEGATIVE); URINE LEUK ESTERASE NEGATIVE (NEGATIVE); URINE NITRITE NEGATIVE (NEGATIVE); URINE PROTEIN NEGATIVE (NEGATIVE); URINE UROBILINOGEN 0.2 mg/dL (0.2-1.0)
[2023-12-16 11:48] LABS: INR 0.96 (0.83-1.09); PROTHROMBIN TIME (PATIENT) 10.9 SEC (9.7-13.0)
[2023-12-16 20:00] LABS: HIV INTERPRETATION NEGATIVE (NEGATIVE)
[2023-12-17] MEDS: CHOLECALCIFEROL (VIT D3) 400 UNIT (10 MCG) TABLET PO SCH (20:58)
[2023-12-17] MEDS: MAGNESIUM OXIDE 400 MG TABLET (FP) PO SCH (21:50)
[2023-12-22] MEDS: NALTREXONE HCL 50 MG TABLET PO ONE (10:22)
[2023-12-23] MEDS: NALTREXONE HCL 50 MG TABLET PO SCH (10:14)
[2023-12-23] MEDS: LACTULOSE 20 GM/30 ML UDC (FOR ORAL USE ONLY) PO SCH (14:13)
[2023-12-27 06:34] VITALS: TEMP 98.1
[2023-12-27 09:09] VITALS: BP 137/86; PULSE 87; RESP 19
== END 2023-12-27 09:16 | disposition home or self-care (01) | DRG 772 ==
LOC: YASAS 11:40 → Y3NR 15:06 → Y3E 12-14 10:36
PROVIDERS: ADMIT Allergy & Immunology; ATTEND Psychiatry & Neurology Pain Medicine
PROC: HZ42ZZZ Group Counseling for Substance Abuse Treatment, Cognitive-Behavioral (ICD-10-PCS; principal; 2023-12-13)
DX: F10.20 Alcohol dependence, uncomplicated (principal); F17.210 Nicotine dependence, cigarettes, uncomplicated; F10.282 Alcohol dependence with alcohol-induced sleep disorder; F10.24 Alcohol dependence with alcohol-induced mood disorder; F32.A Depression, unspecified; E72.20 Disorder of urea cycle metabolism, unspecified; E83.42 Hypomagnesemia; G40.909 Epilepsy, unspecified, not intractable, without status epilepticus; I10 Essential (primary) hypertension; J45.909 Unspecified asthma, uncomplicated; K21.9 Gastro-esophageal reflux disease without esophagitis; K08.89 Other specified disorders of teeth and supporting structures; Z59.01 Sheltered homelessness
CPT/HCPCS: 36415; 80053; 80061; 80177; 80305; 80307; 81003; 82140; 82652; 83735; 85027; 85610; 86593; 86780; 87389; 87811